=== PATIENT | male | born 1950 | race Caucasian/White ===

== ENCOUNTER 2021-07-24 12:30 | Outpatient (RCR) | payer MEDICARE, OTHER, SELFPAY | END 2021-07-24 14:30 | LOC: CAR 12:30 | PROVIDERS: Referring Provider Family Medicine; Visit Provider Family Medicine | DX: I21.3 ST elevation (STEMI) myocardial infarction of unspecified site (principal) | CPT/HCPCS: 93798 ==

== ENCOUNTER → 2021-07-25 07:52 | Outpatient (CLI) | payer MEDICARE, OTHER, SELFPAY ==
[2021-07-25 08:24] LABS: Add Manual Diff / Slide Review NO; Basophils Absolute Auto 0 /uL (0-100); Basophils Percent Auto 0.3 % (0-2); Eosinophils Absolute Auto 100 /uL (0-450); Eosinophils Percent Auto 2.1 % (2-4); Hematocrit 39.1 % (41-53); Hemoglobin 13.2 g/dL (13.5-17.5); Lymphocytes Absolute Auto 1400 /uL (1100-4500); Mean Corpuscular HGB Conc 33.9 % (30-36); Mean Corpuscular Volume 94.4 fL (80-100); Monocytes Absolute Auto 300 /uL (0-900); Monocytes Percent Auto 6.5 % (3-14); Neutrophils Absolute Auto 2300 /uL (1500-7000); Neutrophils Percent Auto 57.1 % (50-75); Platelet Count 198 X10^3/uL (150-400); Red Blood Cell Count 4.14 X10^6/uL (4.5-5.9)
[2021-07-25 09:27] LABS: Blood Urea Nitrogen 15 mg/dL (9-20); Calcium 9.6 mg/dL (8.4-10.2); Carbon Dioxide 30 mmol/L (22-32); Chloride 105 mmol/L (98-107); Estimated Glomerular Filt Rate > 60 mL/min (>60); Glucose 101 mg/dL (80-110); HEMOLYSIS < 15 (0-50); Sodium 141 mmol/L (137-145)
[2021-07-26 16:49] LABS: Cholesterol 100 mg/dL (140-199); HDL Cholesterol 39 mg/dL (40-60); LDL Cholesterol Calculated 42 mg/dL (<100); Triglycerides 93 mg/dL (35-150)
== END ==
PROVIDERS: PCP Family Medicine; Referring Provider Internal Medicine Cardiovascular Disease; Visit Provider Internal Medicine Cardiovascular Disease
DX: I25.10 Atherosclerotic heart disease of native coronary artery without angina pectoris (principal); E78.5 Hyperlipidemia, unspecified
CPT/HCPCS: 36415; 80048; 80061; 85025

== ENCOUNTER 2021-08-16 21:39 | Inpatient (IN) | payer MEDICARE, OTHER, SELFPAY ==
[2021-08-16 22:05] VITALS: BP 134/90; PULSE 60; RESP 18; TEMP 36.6; O2SAT 100
[2021-08-16 22:32] LABS: Appearance Urine UA CLEAR; Bilirubin Urine UA NEGATIVE (NEGATIVE); Color Urine UA YELLOW; Glucose Urine UA NEGATIVE (Negative); Ketones Urine UA TRACE (NEGATIVE); Leukocyte Esterase Urine UA 1+ (NEGATIVE); Nitrite Urine UA NEGATIVE (Negative); Occult Blood Urine UA 2+ (Negative); Protein Urine UA 1+ (Negative); Urobilinogen Urine UA 0.2 E.U./dL (0.2)
--- NOTE | 2021-08-16 22:45 | ED_ITS ---
HPI - Back Pain/Injury General Chief Complaint: Back Pain/Injury Stated Complaint: EXTREME UNDERNEATH LEFT RIB Time Seen by Provider: 08/16/21 22:17 Source: patient Mode of arrival: Ambulatory Limitations: no limitations History of Present Illness HPI Narrative: Patient is a 70-year-old male. History of Parkinson's disease who is here for evaluation of pain on his left flank. He states that it was a relatively sudden onset earlier this evening. He has had a kidney stone in the past but that was many years ago. He states this feels somewhat like that. He denies any urinary symptoms. No nausea vomiting. No fevers. No change in bowel habits. Has not taken anything for the symptoms prior to arrival. No skin changes. Related Data Allergies Allergy/AdvReac Type Severity Reaction Status Date / Time Iodine Allergy Unknown Uncoded 07/22/17 11:55 Review of Systems Constitutional Comments: No fevers Cardiovascular Cardiovascular: Denies chest pain and Denies dyspnea Respiratory Respiratory: Denies dyspnea Gastrointestinal Gastrointestinal: Denies nausea and Denies vomiting Comments: Left-sided flank pain Genitourinary Genitourinary: Denies dysuria and Reports flank pain Integumentary/Breasts Skin/Breast: Denies rash Neurologic Neurologic: Reports system reviewed and no additional complaints, except as documented Hematologic/Lymphatic On Anticoagulants: No Allergic/Immunologic Allergic/Immunologic: Reports system reviewed and no additional complaints, except as documented Patient History Medical History Parkinson's disease Social History household members: spouse Smoking Status: Never smoker alcohol intake: never Smoking Status: Never smoker Substance Use Type: does not use Exam Initial Vital Signs Initial Vital Signs: Vital Signs Temperature 97.9 F 08/16/21 22:05 Pulse Rate 60 08/16/21 22:05 Respiratory Rate 18 08/16/21 22:05 Blood Pressure 134/90 08/16/21 22:05 Pulse Oximetry 100 08/16/21 22:05 Const General: cooperative and comfortable HENMT Head: normal to inspection and normocephalic Resp Effort & Inspection: normal respiratory effort Auscultation: clear to auscultation bilaterally Cardio Rate: regular rate Rhythm: regular rhythm Heart Sounds: murmur GI Inspection: normal to inspection Palpation: soft and No tender Skin General: no rashes or lesions noted Neuro Other: He does have a tremor consistent with his Parkinson's disease. Otherwise nonfocal exam. Alert oriented. Extrem General: normal to inspection Psych Appearance: grossly normal and well kempt Course Orders Ordered: ED Orders 08/16/21 22:10 Urinalysis and Microscopic Stat Urine Culture Stat 08/16/21 22:19 EKG-12 Lead Stat 08/16/21 22:44 Basic Metabolic Panel Stat Complete Blood Count AUTO DIFF Stat 08/16/21 22:46 CT kidney ureter bladder (KUB) Stat 08/17/21 01:03 Consult to Urology Stat 08/17/21 01:10 COVID19 -Nasal RAPID/Pre-Proc Stat Sodium Chloride (Normal Saline 0.9%) 1,000 mls @ 100 mls/hr IV CONT KENRICK Last Infusion: 08/17/21 03:01 Dose: 100 mls/hr Documented by: Admin: 08/17/21 01:21 Dose: 100 mls/hr Documented by: SHARON Morphine Sulfate (Morphine 2 Mg/Ml Inj) 4 mg IV Q2HR PRN PRN Reason: Pain, Severe (7-10) Last Admin: 08/17/21 03:25 Dose: 4 mg Documented by: JB Ondansetron HCl (Ondansetron 4 Mg/2 Ml Inj) 4 mg IV Q4HR PRN PRN Reason: Nausea And Vomiting Discontinued Medications Ceftriaxone Sodium 1,000 mg/ (Sodium Chloride) 100 mls @ 200 mls/hr IV NOW ONE Stop: 08/17/21 01:05 Last Infusion: 08/17/21 03:01 Dose: 0 mls/hr Documented by: Admin: 08/17/21 01:20 Dose: 200 mls/hr Documented by: SHARON Ketorolac Tromethamine (Ketorolac 30 Mg/Ml Vial) 30 mg IV NOW ONE Stop: 08/16/21 22:47 Last Admin: 08/16/21 22:55 Dose: 30 mg Documented by: SHARON Morphine Sulfate (Morphine 4 Mg/Ml Inj) 4 mg IV NOW ONE Stop: 08/17/21 00:57 Last Admin: 08/17/21 01:04 Dose: 4 mg Documented by: TONNY Morphine Sulfate (Morphine 2 Mg/Ml Inj) 4 mg IV Q2HR [facility] Vital Signs Vital signs: Vital Signs - 8 hr 08/16/21 22:05 Temperature 97.9 F Pulse Rate 60 Respiratory Rate 18 Blood Pressure 134/90 Pulse Oximetry 100 MDM - Back Pain/Injury Lab Data Attestation: I reviewed the patient's lab results. Result diagrams: 08/16/21 22:44 08/16/21 22:44 Labs: Lab Results 08/16/21 08/16/21 08/16/21 Range/Units 22:10 22:44 22:44 WBC 7.3 (4.5-11.0) X10^3/uL RBC 3.94 L (4.5-5.9) X10^6/uL Hgb 12.7 L (13.5-17.5) g/dL Hct 37.0 L (41-53) % MCV 93.9 (80-100) fL MCH 32.3 (26-34) PG MCHC 34.4 (30-36) % RDW 13.3 (11.6-14.8) % Plt Count 173 (150-400) X10^3/uL Neut % (Auto) 74.3 (50-75) % Lymph % (Auto) 16.7 L (25-40) % [place] % (Auto) 7.3 (3-14) % Eos % (Auto) 1.3 L (2-4) % Baso % (Auto) 0.4 (0-2) % Neut # (Auto) 5400 (6359-8003) /uL Lymph # (Auto) 1200 (6348-1910) /uL [place] # (Auto) 500 (0-900) /uL Eos # (Auto) 100 (0-450) /uL Baso # (Auto) 0 (0-100) /uL Sodium 140 (137-145) mmol/L Potassium 4.2 (3.4-5.1) mmol/L Chloride 106 (98-107) mmol/L Carbon Dioxide 25 (22-32) mmol/L BUN 26 H (9-20) mg/dL Creatinine 1.41 H (0.66-1.25) mg/dL Estimated GFR 54 L (>60) mL/min BUN/Creatinine Ratio 18.4 (6-22) Glucose 97 (80-110) mg/dL Calcium 9.9 (8.4-10.2) mg/dL Urine Color Yellow Urine Appearance Clear Urine pH 6.0 (4.5-8.0) Ur Specific [place] 1.020 (1.000-1.035) Urine Protein 1+ H (Negative) Urine Glucose (UA) Negative (Negative) g/dL Urine Ketones Trace H (NEGATIVE) Urine Occult Blood 2+ H (Negative) Urine Nitrate Negative (Negative) Urine Bilirubin Negative (NEGATIVE) Urine Urobilinogen 0.2 (0.2) E.U./dL Ur Leukocyte Esterase 1+ H (NEGATIVE) Urine RBC 5-10/hpf H (0-5/HPF) Urine WBC 10-30/hpf H (0-5/HPF) Urine Bacteria Occasional (0-1) (None) Urine Mucus 1+ H (Negative) Ur Culture Indicated? Specimen cultured SARS-CoV-2 (PCR) (Negative) 08/17/21 Range/Units 01:10 WBC (4.5-11.0) X10^3/uL RBC (4.5-5.9) X10^6/uL Hgb (13.5-17.5) g/dL Hct (41-53) % MCV (80-100) fL MCH (26-34) PG MCHC (30-36) % RDW (11.6-14.8) % Plt Count (150-400) X10^3/uL Neut % (Auto) (50-75) % Lymph % (Auto) (25-40) % [place] % (Auto) (3-14) % Eos % (Auto) (2-4) % Baso % (Auto) (0-2) % Neut # (Auto) (7072-9584) /uL Lymph # (Auto) (9154-9987) /uL [place] # (Auto) (0-900) /uL Eos # (Auto) (0-450) /uL Baso # (Auto) (0-100) /uL Sodium (137-145) mmol/L Potassium (3.4-5.1) mmol/L Chloride (98-107) mmol/L Carbon Dioxide (22-32) mmol/L BUN (9-20) mg/dL Creatinine (0.66-1.25) mg/dL Estimated GFR (>60) mL/min BUN/Creatinine Ratio (6-22) Glucose (80-110) mg/dL Calcium (8.4-10.2) mg/dL Urine Color Urine Appearance Urine pH (4.5-8.0) Ur Specific [place] (1.000-1.035) Urine Protein (Negative) Urine Glucose (UA) (Negative) g/dL Urine Ketones (NEGATIVE) Urine Occult Blood (Negative) Urine Nitrate (Negative) Urine Bilirubin (NEGATIVE) Urine Urobilinogen (0.2) E.U./dL Ur Leukocyte Esterase (NEGATIVE) Urine RBC (0-5/HPF) Urine WBC (0-5/HPF) Urine Bacteria (None) Urine Mucus (Negative) Ur Culture Indicated? SARS-CoV-2 (PCR) Negative (Negative) Imaging Data CT scan - abdomen/pelvis: Radiologist's Impression: [address] [address] [address] Scan Report Addendum Patient: Maykel Klein MR#: [id number] : 1950 Acct:[id number] Age/Sex: 70 / M Date of Service: 08/16/21 Loc: ED Accession Number: [id number] ?? Procedure: CT kidney ureter bladder (KUB) Ordering Provider: Nathan Hamlin D.O. ADDENDUMThis report includes an Addendum and supersedes previous reports for this exam. ? ? ? PROCEDURE:? CT KIDNEY URETER BLADDER (KUB) ? INDICATIONS:? Left flank pain eval for stone ? TECHNIQUE:? Axial sections were acquired from the lung bases to the pubic symphysis.? Coronal and sagittal reformats were performed.? For radiation dose reduction, the following was used: ?automated exposure control, adjustment of mA and/or kV according to patient size.? ? COMPARISON:? None. ? FINDINGS:? Image quality:? Excellent.? ? Lung bases:? There is mild dependent atelectasis bilaterally.? ? Heart:? Heart is normal in size.? There is a small to moderate hiatal hernia. ? URINARY: Right Kidney:? There are multiple, at least 7, nonobstructing stones within the right kidney, with the largest measuring up to 1.4 cm.? This demonstrates attenuation values of approximately 900 to a 1000 Hounsfield units.? Right Ureter:? There is hydroureter proximally with an obstructing stone in the mid left ureter measuring up to 0.7 cm. ? Left Kidney: ? There is at least 1 nonobstructing stone within the left kidney. Left Ureter:? There is a small nonobstructing stone within the mid left ureter measuring up to 0.3 cm with mild left hydronephrosis and perinephric stranding. ? Bladder:? Normal wall thickness. No stones. ? ? ? ABDOMEN: Liver:? No mass lesion.? Gallbladder:? Surgically absent. Biliary ducts:? No biliary ductal dilatation.? ? Pancreas:? Unremarkable.? ? Spleen:? Normal in size.? ? Adrenal Glands:? No adrenal nodules.? ? .? ? ? Stomach and Bowel:? Stomach, small bowel loops, and colon are normal in caliber and wall thickness.? No evidence of appendicitis.? Peritoneum:? No abnormal intraperitoneal fluid.? No free air.? ? Ventral Wall: ? No hernia.? Abdominal Nodes:? No retroperitoneal or mesenteric adenopathy by size criteria.? Vessels:? Aorta and inferior vena cava are normal in size.? ? PELVIS: Pelvic Organs:? There is heterogeneous enlargement of the prostate.? There is moderate enlargement of the prostate.? Bladder:? Unremarkable.? ? Pelvic Nodes: No enlarged lymph nodes.? Miscellaneous:? There is a small right inguinal hernia containing a small amount of loculated fluid. ? Bones:? Visualized osseous structures demonstrate no suspicious focal lesions. IMPRESSION:? ? 1. Mid right ureteral stone measuring 7 mm with moderate right hydronephrosis. ? 2. Mid left ureteral stone measuring 3 mm with mild left hydronephrosis. ? 3. Additional bilateral nonobstructing renal stones as described. ? 4. Small to moderate hiatal hernia.? ? 5. Small right inguinal hernia containing a small amount of loculated fluid. ? ? Dictated by: Jimmie Lopez M.D. on 08/17/2021 at 0:14 ? ? Approved by: Jimmie Lopez M.D. on 08/17/2021 at 0:26 ? ? ? ADDENDUM: ? Correction of typographic errors in impression. ? Dictated by: Jimmie Lopez M.D. on 08/17/2021 at 0:41 ? ? Approved by: Jimmie Lopez M.D. on 08/17/2021 at 0:45 ? Addendum Dictated By: Jimmie Lopez MD Addendum Signed By: Addendum Cosigned By: DD/ /01/48 TD/TT: 08/17/2111/01/48 PROCEDURE:? CT KIDNEY URETER BLADDER (KUB) ? INDICATIONS:? Left flank pain eval for stone ? TECHNIQUE:? Axial sections were acquired from the lung bases to the pubic symphysis.? Coronal and sagittal reformats were performed.? For radiation dose reduction, the following was used: ?automated exposure control, adjustment of mA and/or kV according to patient size.? ? COMPARISON:? None. ? FINDINGS:? Image quality:? Excellent.? ? Lung bases:? There is mild dependent atelectasis bilaterally.? ? Heart:? Heart is normal in size.? There is a small to moderate hiatal hernia. ? URINARY: Right Kidney:? There are multiple, at least 7, nonobstructing stones within the right kidney, with the largest measuring up to 1.4 cm.? This demonstrates attenuation values of approximately 900 to a 1000 Hounsfield units.? Right Ureter:? There is hydroureter proximally with an obstructing stone in the mid left ureter measuring up to 0.7 cm. ? Left Kidney: ? There is at least 1 nonobstructing stone within the left kidney. Left Ureter:? There is a small nonobstructing stone within the mid left ureter measuring up to 0.3 cm with mild left hydronephrosis and perinephric stranding. ? Bladder:? Normal wall thickness. No stones. ? ? ? ABDOMEN: Liver:? No mass lesion.? There is mild of Gallbladder:? Within normal limits without calcified gallstones.? ? Biliary ducts:? No biliary ductal dilatation.? ? Pancreas:? Unremarkable.? ? Spleen:? Normal in size.? ? Adrenal Glands:? No adrenal nodules.? ? Kidneys and Ureters:? No hydronephrosis.? ? ? Stomach and Bowel:? Stomach, small bowel loops, and colon are normal in caliber and wall thickness.? No evidence of appendicitis.? Peritoneum:? No abnormal intraperitoneal fluid.? No free air.? ? Ventral Wall: ? No hernia.? There is a loculated fluid collection in the pelvis.? Abdominal Nodes:? No retroperitoneal or mesenteric adenopathy by size criteria.? Vessels:? Aorta and inferior vena cava are normal in size.? ? PELVIS: Pelvic Organs:? There is heterogeneous enlargement of the prostate.? There is moderate enlargement of the prostate.? Bladder:? Unremarkable.? ? Pelvic Nodes: No enlarged lymph nodes.? Miscellaneous: No inguinal hernias are seen. ? ? ? Bones:? Visualized osseous structures demonstrate no suspicious focal lesions. IMPRESSION:? ? 1. Obstructing stone within the mid right ureter with moderate right hydronephrosis. ? 2. Small nonobstructing stone measuring up to 0.3 cm in the mid left kidney. ? 3. There is an obstructing stone within the right retroperitoneum measuring up to 0.8 cm and a small left renal stone measuring up to 0.3 cm. ? 4. Small hiatal hernia. ? ? Dictated by: Jimmie Lopez M.D. on 08/17/2021 at 0:14 ? ? Approved by: Jimmie Lopez M.D. on 08/17/2021 at 0:26?? ECG Data Attestation: I personally reviewed and interpreted this ECG as follows: Interpretation: Sinus rhythm Ventricular rate is 64 Normal axis Normal QRS No ST T wave changes MDM Narrative Medical decision making narrative: No leukocytosis but does have a elevation in his creatinine and decrease in his GFR compared with labs were done approximately 1 month ago. He is afebrile. He did feel better after the Toradol but the pain started to return. Urinalysis has blood and white blood cells and bacteria concerning for infection. CT scan did have some discrepancies regarding laterality of stones. I did discuss the case with the radiologist who stated over the phone that he does have bilateral obstructing stones. He stated the patient had a 3 mm left-sided mid ureteral stone with hydro on the left and stranding. He also had a 7 mm right-sided mid ureteral stone with hydro as well. Given the findings of the CT scan in his labs did discuss the case with Dr. Gan on-call for Urology who stated that the patient should be admitted for further evaluation and treatment. I then discussed the case with Dr. Beach who is on-call for the patient's primary provider who will admit for further evaluation treatment. I did discuss the findings with the patient and his at bedside. They expressed understanding and agreement with the admission. Discharge Plan Departure Patient Disposition: Admitted as Observation Clinical Impression: Bilateral ureteral calculi, Urinary tract infection Admit Date/Time: 08/17/21 01:13 Admit Provider: Christina Beach
--- NOTE | 2021-08-16 22:46 | DI.CT.S_ITS ---
PROCEDURE: CT KIDNEY URETER BLADDER (KUB) INDICATIONS: Left flank pain eval for stone TECHNIQUE: Axial sections were acquired from the lung bases to the pubic symphysis. Coronal and sagittal reformats were performed. For radiation dose reduction, the following was used: automated exposure control, adjustment of mA and/or kV according to patient size. COMPARISON: None. FINDINGS: Image quality: Excellent. Lung bases: There is mild dependent atelectasis bilaterally. Heart: Heart is normal in size. There is a small to moderate hiatal hernia. URINARY: Right Kidney: There are multiple, at least 7, nonobstructing stones within the right kidney, with the largest measuring up to 1.4 cm. This demonstrates attenuation values of approximately 900 to a 1000 Hounsfield units. Right Ureter: There is hydroureter proximally with an obstructing stone in the mid left ureter measuring up to 0.7 cm. Left Kidney: There is at least 1 nonobstructing stone within the left kidney. Left Ureter: There is a small nonobstructing stone within the mid left ureter measuring up to 0.3 cm with mild left hydronephrosis and perinephric stranding. Bladder: Normal wall thickness. No stones. ABDOMEN: Liver: No mass lesion. There is mild of Gallbladder: Within normal limits without calcified gallstones. Biliary ducts: No biliary ductal dilatation. Pancreas: Unremarkable. Spleen: Normal in size. Adrenal Glands: No adrenal nodules. Kidneys and Ureters: No hydronephrosis. Stomach and Bowel: Stomach, small bowel loops, and colon are normal in caliber and wall thickness. No evidence of appendicitis. Peritoneum: No abnormal intraperitoneal fluid. No free air. Ventral Wall: No hernia. There is a loculated fluid collection in the pelvis. Abdominal Nodes: No retroperitoneal or mesenteric adenopathy by size criteria. Vessels: Aorta and inferior vena cava are normal in size. PELVIS: Pelvic Organs: There is heterogeneous enlargement of the prostate. There is moderate enlargement of the prostate. Bladder: Unremarkable. Pelvic Nodes: No enlarged lymph nodes. Miscellaneous: No inguinal hernias are seen. Bones: Visualized osseous structures demonstrate no suspicious focal lesions. IMPRESSION: 1. Obstructing stone within the mid right ureter with moderate right hydronephrosis. 2. Small nonobstructing stone measuring up to 0.3 cm in the mid left kidney. 3. There is an obstructing stone within the right retroperitoneum measuring up to 0.8 cm and a small left renal stone measuring up to 0.3 cm. 4. Small hiatal hernia. Dictated by: Jimmie Lopez M.D. on 08/17/2021 at 0:14 Approved by: Jimmie Lopez M.D. on 08/17/2021 at 0:26
[2021-08-16] MEDS: KETOROLAC 30 MG/ML VIAL IV (22:55)
[2021-08-16 22:58] LABS: Add Manual Diff / Slide Review NO; Basophils Absolute Auto 0 /uL (0-100); Basophils Percent Auto 0.4 % (0-2); Eosinophils Absolute Auto 100 /uL (0-450); Eosinophils Percent Auto 1.3 % (2-4); Hemoglobin 12.7 g/dL (13.5-17.5); Lymphocytes Absolute Auto 1200 /uL (1100-4500); Lymphocytes Percent Auto 16.7 % (25-40); Mean Corpuscular HGB Conc 34.4 % (30-36); Mean Corpuscular Hemoglobin 32.3 PG (26-34); Mean Corpuscular Volume 93.9 fL (80-100); Monocytes Absolute Auto 500 /uL (0-900); Monocytes Percent Auto 7.3 % (3-14); Neutrophils Absolute Auto 5400 /uL (1500-7000); Neutrophils Percent Auto 74.3 % (50-75); Platelet Count 173 X10^3/uL (150-400); Red Blood Cell Count 3.94 X10^6/uL (4.5-5.9); Red Cell Distribution Width 13.3 % (11.6-14.8); White Blood Cell Count 7.3 X10^3/uL (4.5-11.0)
[2021-08-16 23:03] LABS: BUN Creatinine Ratio 18.4 (6-22); Blood Urea Nitrogen 26 mg/dL (9-20); Calcium 9.9 mg/dL (8.4-10.2); Carbon Dioxide 25 mmol/L (22-32); Chloride 106 mmol/L (98-107); Estimated Glomerular Filt Rate 54 mL/min (>60); Glucose 97 mg/dL (80-110); HEMOLYSIS < 15 (0-50); Potassium 4.2 mmol/L (3.4-5.1); Sodium 140 mmol/L (137-145)
[2021-08-17] VITALS (11 sets, daily range): BP systolic 123–166; BP diastolic 49–77; PULSE 51–73; RESP 11–18; TEMP 35.6–36.5; O2SAT 96–99; BMI 25.7
--- NOTE | 2021-08-17 | DI.RAD.S_ITS ---
PROCEDURE: XR ABDOMEN 1V INDICATIONS: BILATERAL STENT PLACEMENT TECHNIQUE: One view of the abdomen acquired. COMPARISON: [facility], CT, CT KIDNEY URETER BLADDER (KUB), 08/16/2021, 22:54. FINDINGS: 3 intraoperative fluoroscopy images demonstrate bilateral ureteral stent placement. There is moderate right hydronephrosis. IMPRESSION: 1. Moderate right hydronephrosis. 2. Bilateral ureteral stent placement. Dictated by: Sam Carlos M.D. on 08/17/2021 at 14:28 Approved by: Sam Carlos M.D. on 08/17/2021 at 14:29
[2021-08-17 00:22] LABS: Bacteria Urine Occasional (0-1); Culture Indicated Urine Specimen Cultured; Mucus Urine 1+ (Negative); RBC Urine 5-10/HPF (0-5/HPF); WBC Urine 10-30/HPF (0-5/HPF)
[2021-08-17] MEDS: MORPHINE 4 MG/ML INJ IV (01:04)
[2021-08-17] MEDS: cefTRIAXone 1,000 MG in SODIUM CHLORIDE 0.9% 100 ML 200 ML IV (01:20)
[2021-08-17] MEDS: SODIUM CHLORIDE 0.9% 1,000 ML 100 ML IV (01:21)
[2021-08-17 01:31] LABS: COVID19 -Nasal RAPID Negative (Negative)
[2021-08-17] MEDS: MORPHINE 2 MG/ML INJ 4 MG IV (03:25)
--- NOTE | 2021-08-17 04:55 | PC.NURSE ---
Addendum entered by Radha Menendez R.N. 08/17/21 07:49: 0630- Called Dr. Gan regaurding patients parkinsons meds and if he was ok with patient taking then prior to surgery. Dr. Gan asked me to call medical docotr for that answer. Dr. beach called then. Dr. beach oked parkinsons medications, advised to notify anestesia that patient took medications. Dr. Beach ok'ed patient taking home parkinsons medications due to Non-Formulary specialty doses. Patient took Rytary 195, Rytary 95, Ropinerrole 8mg, Nourianz 20mg, Xadago 100mg, and Gocovri 137mg. to bring in medications with bottles for pharm to verify. Original Note: Admit/NOC Shift Note- Patient arrived to room via stretcher from ER at 0205. Patient alert and oriented and able to make needs known to staff. Patient pleasent calm and cooperative. Patient able to stand and pivot with assist to transfer from stretcher to bed. Patient with history of parkinsons with tremors. Admit questiobs done, physical assessment done, and skin check completed. patient declines need for pain medications at this time. Oriented patient to bed and bed controls, room, lights, phone, medu, anmd call sb /tv remote. safety measures in place. Patient agrees to call for assistance. bed alarm activated. Call dunn and phone within reach. Will continue to monitor.
--- NOTE | 2021-08-17 08:16 | P.CONS_ITS ---
History of Present Illness Consult details Date Patient Seen: 08/17/21 Time Patient Seen: 08:16 Chief complaint: EXTREME UNDERNEATH LEFT RIB Reason for consult: Bilateral obstructing ureteral calculi Requesting provider: Nathan Hamlin Narrative: The patient is a 70-year-old male who was experience is usual health until the early evening hours of 08/16/2021 when he had the acute onset of left flank pain. His impression was that it was reminiscent of a stone he had had many years ago. By history the stone required intervention. Does not have recollection of ever having had a metabolic stone risk evaluation. He resented to the [facility] ED for evaluation. CT KUB demonstrates bilateral nonobstructing renal calculi. There is at least 1 nonobstructing calculus the left kidney measuring up to 3 mm and also an obstructing 3 mm left mid ureteral calculus. There are at least 7 nonobstructing calculi within the right kidney, largest measuring up to 1.4 cm. Hounsfield unit measurement is reported at 900- 1000. Additionally on the left there is an obstructing 7 mm right mid ureteral calculus with a smaller, approximately 3 mm calculus just proximal to that stone. General appearance of the prostate is consistent with prostatomegaly. One of the patient's prescription medications at presentation is tamsulosin 0.8 mg. Baseline renal function 07/25/2021 indicated a creatinine of 0.88, and estimated GFR > 60. On presentation 08/16/2021 creatinine had risen sharply to 1.41, and estimated GFR had declined to 54. Urinalysis demonstrates 2+ blood 1+ leukocyte esterase. Occasional bacteria was seen. The specimen is submitted for reflex culture which is pending. White blood cell count on presentation was 7.3. Meds Home Medications and Allergies Home Medications Medication Instructions Recorded Confirmed Type amantadine HCl 137 mg 137 mg PO 0700,2200 08/17/21 08/17/21 History capsule,extended release 24 hr (Gocovri) apomorphine 25 mg sublingual film 25 mg SUBLINGUAL PRN 08/17/21 History (Kynmobi) aspirin 81 mg chewable tablet 81 mg PO DAILY 08/17/21 08/17/21 History atorvastatin 80 mg tablet 80 mg PO BEDTIME 08/17/21 08/17/21 History carbidopa 25 mg-levodopa 100 mg 25 - 100 tab PO 0100,0400 05/07/22 05/07/22 History tablet carbidopa ER 23.75 mg-levodopa 95 23.75 - 95 cap PO BID 08/17/21 08/17/21 History mg capsule,extended release (Rytary) carbidopa ER 48.75 mg-levodopa 195 cap PO 5XD 08/17/21 History mg capsule,extended release (Rytary) clopidogrel 75 mg tablet 75 mg PO DAILY 08/17/21 08/17/21 History istradefylline 20 mg tablet 20 mg 0700 08/17/21 08/17/21 History (Nourianz) levothyroxine 50 mcg tablet 50 mcg PO 0600 08/17/21 08/17/21 History ropinirole 4 mg tablet 4 mg PO 1300,1600 08/17/21 08/17/21 History ropinirole 4 mg tablet 8 mg PO 0700,1000 08/17/21 08/17/21 History safinamide 100 mg tablet (Xadago) 100 mg PO 0700 08/17/21 08/17/21 History tamsulosin 0.4 mg capsule 0.8 mg PO 1600 08/17/21 08/17/21 History zolpidem 5 mg tablet 5 mg PO BEDTIME 08/17/21 08/17/21 History Allergies Allergy/AdvReac Type Severity Reaction Status Date / Time Iodine Allergy Unknown Uncoded 07/22/17 11:55 Review of Systems Review of Systems ROS: Yes All systems reviewed with the patient and are negative except as otherwise documented Exam Vital Signs (past 8 hours): - 08/17/21 02:29 08/17/21 06:00 Temperature 97.7 F 97.0 F L Pulse Rate 73 58 L Respiratory Rate 16 16 Blood Pressure 138/50 L 146/74 H Pulse Oximetry 96 98 Oxygen Delivery Method Room Air Oxygen Flow Rate 0 Objective Labs Result Diagrams: 08/16/21 22:44 08/16/21 22:44 Labs: Laboratory Results - last 24 hr 08/16/21 08/16/21 08/16/21 22:10 22:44 22:44 WBC 7.3 RBC 3.94 L Hgb 12.7 L Hct 37.0 L MCV 93.9 MCH 32.3 MCHC 34.4 RDW 13.3 Plt Count 173 Neut % (Auto) 74.3 Lymph % (Auto) 16.7 L [place] % (Auto) 7.3 Eos % (Auto) 1.3 L Baso % (Auto) 0.4 Neut # (Auto) 5400 Lymph # (Auto) 1200 [place] # (Auto) 500 Eos # (Auto) 100 Baso # (Auto) 0 Sodium 140 Potassium 4.2 Chloride 106 Carbon Dioxide 25 BUN 26 H Creatinine 1.41 H Estimated GFR 54 L BUN/Creatinine Ratio 18.4 Glucose 97 Calcium 9.9 Urine Color Yellow Urine Appearance Clear Urine pH 6.0 Ur Specific [place] 1.020 Urine Protein 1+ H Urine Glucose (UA) Negative Urine Ketones Trace H Urine Occult Blood 2+ H Urine Nitrate Negative Urine Bilirubin Negative Urine Urobilinogen 0.2 Ur Leukocyte Esterase 1+ H Urine RBC 5-10/hpf H Urine WBC 10-30/hpf H Urine Bacteria Occasional (0-1) Urine Mucus 1+ H Ur Culture Indicated? Specimen cultured SARS-CoV-2 (PCR) 08/17/21 01:10 WBC RBC Hgb Hct MCV MCH MCHC RDW Plt Count Neut % (Auto) Lymph % (Auto) [place] % (Auto) Eos % (Auto) Baso % (Auto) Neut # (Auto) Lymph # (Auto) [place] # (Auto) Eos # (Auto) Baso # (Auto) Sodium Potassium Chloride Carbon Dioxide BUN Creatinine Estimated GFR BUN/Creatinine Ratio Glucose Calcium Urine Color Urine Appearance Urine pH Ur Specific [place] Urine Protein Urine Glucose (UA) Urine Ketones Urine Occult Blood Urine Nitrate Urine Bilirubin Urine Urobilinogen Ur Leukocyte Esterase Urine RBC Urine WBC Urine Bacteria Urine Mucus Ur Culture Indicated? SARS-CoV-2 (PCR) Negative [facility] Medical History Parkinson's disease Social History household members: spouse Tobacco & Substance Use Smoking Status: Never smoker alcohol intake: never Assessment & Plan Assessment & Plan narrative: Assessment: 1. Bilateral obstructing mid ureteral calculi. 2. Bilateral nonobstructing renal calculi. 3. Acute kidney injury. 4. Chronic anticoagulation (clopidogrel). Plan: 1. Discussion, informed consent obtained for CYSTOSCOPY/PLACEMENT BILATERAL URE TERAL STENTS. 2. Patient will require interruption of chronic anticoagulation therapy in near future for definitive treatment the obstructing calculi the laser lithotripsy. Time Spent With Patient Critical Care time: I spent a total of [] minutes of critical care time on this patient's care today; this time is exclusive of procedural time.
--- NOTE | 2021-08-17 09:18 | PM.PREOP ---
Pre-operative Note COVID-19 Criteria for continued procedure: Expected advancement of disease process, Possibility delay results in more complex future surgery or treatment, Increased loss of function, Continuing or worsening of significant or severe pain, Deterioration of the patient's condition or overall health and Non-surgical alternatives not available or appropriate per current SOC Interval Note History & Physical reviewed/Exam performed by Physician: Yes Changes to H&P: No
--- NOTE | 2021-08-17 11:44 | CM.IDA ---
DCP: Case received, EMR reviewed and met with patient. Spouse, Jackelyn, was also at bedside. Introduced self and role. Was able to obtain information regarding patient's baseline status at home prior to hospitalization. DCP assessment completed with information currently available. Patient is a 70 year old male who admitted early this morning to the care of the hospitalist team. PCP: Dr. Robledo. Payer: confirmed: Medicare/[facility]. Patient came to the hospital via private vehicle secondary to having flank back pain. According to notes, patient had indicated, it was reminiscent of a stone that he had many years ago. Patient does hold diagnosis of obstructing calculi. He has been seen by urologist, Dr. Paz, and is scheduled for a cystoscopy/bilateral uretal stents. Patient has history of Parkinsons as well. Met with patient and spouse in his room. He was laying in bed, alert and oriented, his walker next to his bed. Spouse stated that they moved here from [facility] in January, and patient had their home built here in [place] with plans for handicapped capability, since he has Parkinsons. At patient's baseline, he drives short distances, and has his four wheel walker, does not use all of the time. There are no steps in the home. P: DCP to continue to check in for any needs. Patient is scheduled for surgical procedure today. Kait Ramey RN/Production Helper Discharge Planning/Care Management CM Discharge Assessment Start: 08/17/21 11:41 Freq: Status: Active Protocol: Document 08/17/21 11:41 (Rec: 08/17/21 11:43 [id number]) Discharge Planning Assessment Assigned Cryptologic Technician Operator/Analyst Kait Ramey RN/Production Helper Advance Directives? No Advance Directives on File No History Provided By Patient,Medical Record Prior Living Arrangements House Household Members spouse Type of transporation used prior to Drives own vehicle admit Comment Drives only locally, short distances Independent with ADL's Yes Is patient alert and oriented? Yes Needs Assistance With Home Chores / Shopping Caregiver for Another No DME Already Rented / Owned FWW / Walker Comment Uses a four wheel walker Barriers to Discharge No Comment Patient has supportive spouse . Discharge Plan Home Transportation Arrangement Spouse Referrals Initiated None needed Whiteboard Updated in Patient Room with Yes name and ext. # of Cryptologic Technician Operator/Analyst Review Status In Process Next Review Type Continued Stay Review
[2021-08-17] MEDS: LACTATED RINGERS 1,000 ML 42 ML IV (12:29)
[2021-08-17] MEDS: CEFAZOLIN 2 GM/20 ML SYRINGE IV (12:45)
--- NOTE | 2021-08-17 13:01 | SUR.OPER ---
Lithotomy on padded OR bed, head on pillow, arms secured on padded arm boards at <90 degrees abduction. Legs secured in padded yellow fins stirrups.
[2021-08-17] MEDS: IOPAMIDOL 50 ML VIAL INJ (13:10)
--- NOTE | 2021-08-17 13:51 | P.OP_ITS ---
Operative Date/Time/Diagnoses Date of procedure: 08/17/21 Time of procedure: 13:30 Pre-op diagnosis: 1. Bilateral obstructing ureteral calculi. 2. Bilateral nonobstructing renal calculi. 3. Acute kidney injury. Post-op diagnosis: same Procedure & Clinicians Procedure: 1. Cystoscopy/right retrograde pyelogram. 2. Cystoscopy/placement bilateral ureteral stents (6 [place] by 22-32 cm multi- length). Same procedure as scheduled: Yes Indications: 1. Bilateral obstructing mid ureteral calculi. 2. Bilateral nonobstructing renal calculi. 3. Acute kidney injury. Surgeon: Tahira Gan Click Yes if Unassisted: Yes Anesthesia Type: General Operative Notes Findings: 1. Urethra-normal caliber without annular stricture or lesion. 2. External sphincter- coapted with normal overlying urothelium. 3. Prostate-5+ cm length with obstructing trilobar hyperplasia and elevated median bar. 4. Bladder-1 to 2+ trabeculation. Normal ureteral orifices bilaterally. Excess difficult due to elevated median bar. 5. Obstructing right ureteral calculi were of a high-grade nature and passage of Jeff guidewire was difficult but successful. Closure Type: not applicable Specimen(s): none sent Applied: other (Bilateral 6 [place] by 22-32 cm multi-length stents.) Estimated Blood Loss (mL): 5 Blood products transfused: none Procedure in detail: The patient was positioned supine was administered general anesthesia. He was then repositioned in semi lithotomy and the lower abdomen, genitalia, and groin were then prepped and draped in sterile fashion. A 22 [place] panendoscope was then passed into the lower urinary tract with the findings as described above. Next, a 0.35 hybrid guidewire was passed through the endoscope and then into the right collecting system under direct and fluoroscopic guidance. High-grade obst ruction was met in the mid right ureter secondary to obstructing calculus. Multiple manipulations were attempted. A 5 [place]ese pollock catheter was then passed over the hybrid guidewire the hybrid guidewire is then backloaded off the [place] catheter. A 0.35 glidewire was then advanced through the [place] catheter and with persistent manipulation was finally passed proximal to the calculus and coiled into the intrarenal collecting system. [place] catheter was then advanced further proximally over the Glidewire. The Glidewire was then backloaded out of the [place] catheter. A right retrograde pyelogram was then performed demonstrating a dilated collecting system. The hybrid guidewire was then reinserted into the [place] catheter advanced proximally under direct and fluoroscopic guidance. Next, the [place] catheter was backloaded off the hybrid guidewire. Now a 6 [place]ese by 22-32 cm multi-length stent was advanced over the hybrid guidewire in position satisfactory in the right collecting system under direct and fluoroscopic guidance. No retrieval line was left attached. Next, the 0.35 glidewire was advanced through the push bar and advanced into the left ureteral orifice under direct and fluoroscopic guidance. The push bar was backloaded off the glidewire and now a 6 [place]ese by 22-32 cm multi-length stent was selected. This stent was then advanced over the Glidewire under direct and fluoroscopic guidance. No retrieval line was left attached. The bladder is then drained completely, and all instrumentation was removed. The patient was then repositioned in supine, was awakened, and was transferred to [facility] for transport to the PACU. Complications: none Post-operative Condition: stable Disposition: PACU Plan for aftercare: Admit to acute care.
--- NOTE | 2021-08-17 14:05 | SUR.PHASEI ---
Pt arrived to PACU, with oral airway, chin lift needed for full airway patency. 02 nasal cannula added, then pt awoke, airway out and 02 weaned off. Pt taking ice chips, denied pain, no nausea. Follows commands.
--- NOTE | 2021-08-17 14:14 | SUR.PHASEI ---
Pt conversing with Martínez RN, Report called, pt transported up to room.
--- NOTE | 2021-08-17 14:30 | P.HP_ITS ---
History of Present Illness History of Present Illness Date Patient Seen: 08/17/21 Time Patient Seen: 12:15 Date of Onset of Symptoms: 08/16/21 Chief complaint: EXTREME UNDERNEATH LEFT RIB Narrative: 70 y.o male with distant history of nephrolithiasis who developed sudden onset of flank pain. very severe. Went to ER fairly quickly and found to have obstructive kidney stone bilaterally. Admitted to hospital for further treatment and condition. Patient with decent pain control currently and headed to OR. Otherwise patient has been in his usual state health. Patient denies any recent chest pain or shortness of breath. No PND or orth opnea. No nausea vomiting or diarrhea. No fever. No change in diet or exercise. PMH: 1. Parkinson's disease: 12/2007; Sheree Cornell M.D. ([facility]) 2. CAD, 01/31 stent placed; [place] 3. DJD 4. Nephrolithiasis, 1999 PSH: 1. Stent, cardiac, 01/31 2. cholecystectomy 3. medial KR, TKR-R HRB: no tobacco, etoh, drugs SH: ; 2 children, retired from [email or web address] lives in [place]; previously in [place], [place] FHx: mom with parkinson's in 60's dad siblings no kidney stones Patient History Medical History Parkinson's disease Family & Social History Social History: household members spouse Prior Living Arrangements House Safety & Behavioral: Feels Safe in Current Yes Environment Been Physically Hurt or No Threatened By a Person Tobacco & Substance use: Smoking Status Never smoker alcohol intake never Substance Use Type does not use Meds Home Medications and Allergies Home Medications Medication Instructions Recorded Confirmed Type amantadine HCl 137 mg 137 mg PO 0700,2200 08/17/21 08/17/21 History capsule,extended release 24 hr (Gocovri) apomorphine 25 mg sublingual film 25 mg SUBLINGUAL PRN 08/17/21 History (Kynmobi) aspirin 81 mg chewable tablet 81 mg PO DAILY 08/17/21 08/17/21 History atorvastatin 80 mg tablet 80 mg PO BEDTIME 08/17/21 08/17/21 History carbidopa 25 mg-levodopa 100 mg 25 - 100 tab PO 0100,0400 08/17/21 08/17/21 History tablet carbidopa ER 23.75 mg-levodopa 95 23.75 - 95 cap PO BID 08/17/21 08/17/21 History mg capsule,extended release (Rytary) carbidopa ER 48.75 mg-levodopa 195 cap PO 5XD 08/17/21 History mg capsule,extended release (Rytary) clopidogrel 75 mg tablet 75 mg PO DAILY 08/17/21 08/17/21 History istradefylline 20 mg tablet 20 mg 0700 08/17/21 08/17/21 History (Nourianz) levothyroxine 50 mcg tablet 50 mcg PO 0600 08/17/21 08/17/21 History ropinirole 4 mg tablet 4 mg PO 1300,1600 08/17/21 08/17/21 History ropinirole 4 mg tablet 8 mg PO 0700,1000 08/17/21 08/17/21 History safinamide 100 mg tablet (Xadago) 100 mg PO 0700 08/17/21 08/17/21 History tamsulosin 0.4 mg capsule 0.8 mg PO 1600 08/17/21 08/17/21 History zolpidem 5 mg tablet 5 mg PO BEDTIME 08/17/21 08/17/21 History Allergies Allergy/AdvReac Type Severity Reaction Status Date / Time Iodine Allergy Unknown Uncoded 07/22/17 11:55 Review of Systems Review of Systems Narrative: Negative for any unintentional weight loss. Negative for any recent falls. Negative for any fever, chills, cough. Negative for any dysuria. Negative for any hematuria. Negative for any change in bowel movements. 12 point review of system is otherwise negative Exam Vital Signs (past 8 hours): - 08/17/21 07:45 08/17/21 13:45 08/17/21 13:50 Temperature 97.0 F L 97.2 F L Pulse Rate 58 L 60 57 L Respiratory Rate 18 13 13 Blood Pressure 140/68 123/59 L 135/64 Pulse Oximetry 99 98 98 08/17/21 13:55 08/17/21 14:12 Temperature 97.5 F L Pulse Rate 56 L 57 L Respiratory Rate 11 L 14 Blood Pressure 135/65 135/71 Pulse Oximetry 98 98 Oxygen Delivery Method Room Air Oxygen Flow Rate 2 Narrative Exam Narrative: Patient is afebrile vital signs are stable Patient has masked faces due to Parkinson's. Otherwise HEENT unremarkable Neck: Supple without adenopathy or thyromegaly Chest: Clear to auscultation without wheezes rhonchi or crackles Cor: Regular rate and rhythm with distant S1-S2 Abdomen: Positive bowel sounds, soft. Patient has recently had pain medications. Patient with bilateral flank tenderness mild tenderness right upper quadrant. No guarding. No rebound Extremities: No edema, pulses intact Skin: No rashes Neurologic exam consistent with Parkinson's but no other focal abnormalities Objective Labs Result Diagrams: 08/16/21 22:44 08/16/21 22:44 Labs: Laboratory Results - last 24 hr 08/16/21 08/16/21 08/16/21 22:10 22:44 22:44 WBC 7.3 RBC 3.94 L Hgb 12.7 L Hct 37.0 L MCV 93.9 MCH 32.3 MCHC 34.4 RDW 13.3 Plt Count 173 Neut % (Auto) 74.3 Lymph % (Auto) 16.7 L [place] % (Auto) 7.3 Eos % (Auto) 1.3 L Baso % (Auto) 0.4 Neut # (Auto) 5400 Lymph # (Auto) 1200 [place] # (Auto) 500 Eos # (Auto) 100 Baso # (Auto) 0 Sodium 140 Potassium 4.2 Chloride 106 Carbon Dioxide 25 BUN 26 H Creatinine 1.41 H Estimated GFR 54 L BUN/Creatinine Ratio 18.4 Glucose 97 Calcium 9.9 Urine Color Yellow Urine Appearance Clear Urine pH 6.0 Ur Specific [place] 1.020 Urine Protein 1+ H Urine Glucose (UA) Negative Urine Ketones Trace H Urine Occult Blood 2+ H Urine Nitrate Negative Urine Bilirubin Negative Urine Urobilinogen 0.2 Ur Leukocyte Esterase 1+ H Urine RBC 5-10/hpf H Urine WBC 10-30/hpf H Urine Bacteria Occasional (0-1) Urine Mucus 1+ H Ur Culture Indicated? Specimen cultured SARS-CoV-2 (PCR) 08/17/21 01:10 WBC RBC Hgb Hct MCV MCH MCHC RDW Plt Count Neut % (Auto) Lymph % (Auto) [place] % (Auto) Eos % (Auto) Baso % (Auto) Neut # (Auto) Lymph # (Auto) [place] # (Auto) Eos # (Auto) Baso # (Auto) Sodium Potassium Chloride Carbon Dioxide BUN Creatinine Estimated GFR BUN/Creatinine Ratio Glucose Calcium Urine Color Urine Appearance Urine pH Ur Specific [place] Urine Protein Urine Glucose (UA) Urine Ketones Urine Occult Blood Urine Nitrate Urine Bilirubin Urine Urobilinogen Ur Leukocyte Esterase Urine RBC Urine WBC Urine Bacteria Urine Mucus Ur Culture Indicated? SARS-CoV-2 (PCR) Negative Assessment & Plan Assessment & Plan narrative: 60 minute spent with patient. Met with patient and his and spoke with nursing and and spoke with Dr. Gan as well. 70-year-old male with bilateral right greater than left hydronephrosis with obs tructing renal stone. Worse on the right with a 7 mm stone. Assessment 1. Nephrolithiasis with obstructing ureteral stones bilaterally Plan: Patient will be admitted to the hospital. He will be NPO. He will proceed with stent placement Routine care in this regard. Pain management. IV fluids. Assessment 2. Parkinson's disease with complicated medications. Reviewed all these medications with patient's as well as pharmacy and he will take his outpatient medications Assessment 3. Coronary artery disease without any current symptoms Plan: Will continue Plavix. Will continue atorvastatin. Will discuss as outpatient with his clinical business manager Dr. Gita Abreu about stopping Plavix briefly if we can do this for presumed lithotripsy which will most likely have to occur. Or if he will need bridging. Fortunately there was not and in order in amount of blood today Assessment 4. Home hyperlipidemia Plan: Continue atorvastatin Assessment 5. Hypothyroidism Plan: Will continue on thyroid medication Assessment 6. Disposition. Anticipate we will discharge home tomorrow Code status is full code Time Spent With Patient Critical Care time: I spent a total of [] minutes of critical care time on this patient's care today; this time is exclusive of procedural time. Quality VTE Deep Vein Thrombosis/Pulmonary Embolism Present on Admission: No
--- NOTE | 2021-08-17 14:38 | SUR.PHASEI ---
Pt left in room with and RERERN, left in stable condition.
[2021-08-17] MEDS: TAMSULOSIN 0.4 MG CAPSULE 0.8 MG PO (15:15)
[2021-08-17] MEDS: LACTATED RINGERS 1,000 ML 125 ML IV (15:15)
[2021-08-17] MEDS: ROPINIROLE 4 MG TABLET PO (15:55)
--- NOTE | 2021-08-17 16:52 | PC.NURSE ---
Pt is AxOx4, needs SBA with FWW. Pt came back from surgery around 1430. No c/o pain. VSS. Pt is eating and drinking well. No other changes.
[2021-08-17] MEDS: ACETAMINOPHEN 325 MG TABLET 650 MG PO (17:45)
[2021-08-17] MEDS: ATORVASTATIN 20 MG TABLET 80 MG PO (22:02)
[2021-08-17] MEDS: ZOLPIDEM 5 MG TABLET PO (22:02)
[2021-08-18] MEDS: LACTATED RINGERS 1,000 ML 125 ML IV (00:07)
[2021-08-18] MEDS: CARBIDOPA-LEVODOPA 25/100 TABLET 25 EACH PO (01:09)
[2021-08-18] MEDS: CARBIDOPA-LEVODOPA 25/100 TABLET 1 EACH PO (04:51)
[2021-08-18] MEDS: LEVOTHYROXINE 50 MCG TABLET PO (07:05)
[2021-08-18] MEDS: [UNRECOGNIZED DRUG - OTHER] 100 EACH PO (07:05)
[2021-08-18] MEDS: ROPINIROLE 4 MG TABLET 8 MG PO ×2 (07:06→09:29)
[2021-08-18] MEDS: ASPIRIN 81 MG CHEW TAB PO (08:24)
[2021-08-18] MEDS: LACTATED RINGERS 1,000 ML 100 ML IV (08:24)
[2021-08-18] MEDS: CLOPIDOGREL 75 MG TABLET PO (08:24)
[2021-08-18 09:00] VITALS: BP 129/46; PULSE 61; RESP 16; TEMP 36.5; O2SAT 94
[2021-08-18 09:39] VITALS: O2SAT 96
--- NOTE | 2021-08-18 10:40 | PM.DS.1 ---
History of Present Illness History of Present Illness Chief complaint: EXTREME UNDERNEATH LEFT RIB Narrative: 70 y.o male with distant history of nephrolithiasis who developed sudden onset of flank pain. very severe. Went to ER fairly quickly and found to have obstructive kidney stone bilaterally. Admitted to hospital for further treatment and condition. Patient with decent pain control currently and headed to OR. Otherwise patient has been in his usual state health. Patient denies any recent chest pain or shortness of breath. No PND or orthopnea. No nausea vomiting or diarrhea. No fever. No change in diet or exercise. PMH: 1. Parkinson's disease: 12/2007; Sheree Cornell M.D. ([facility]) 2. CAD, 01/31 stent placed; [facility] 3. DJD 4. Nephrolithiasis, 1999 PSH: 1. Stent, cardiac, 01/31 2. cholecystectomy 3. medial KR, TKR-R HRB: no tobacco, etoh, drugs SH: ; 2 children, retired from [employer] lives in [place]; previously in [place], [place] FHx: mom with parkinson's in 's dad siblings no kidney stones Discharge Providers Provider Date of admission: 08/17/21 01:13 Discharge Date: 08/18/21 Primary care physician: Axel Robledo MD Consults: 08/17/21 01:03 Consult to Urology Stat Comment: Consulting Provider: Tahira Gan Reason for consultation: Bilateral ureteral stones Has provider been notified: Yes 08/17/21 01:14 Consult to Physician Stat Comment: Consulting Provider: Axel Robledo Reason for consultation: admission Has provider been notified: No Consult to Physician Urgent Comment: Consulting Provider: Christina Beach Reason for consultation: admission Has provider been notified: Yes Discharge provider: Christina Beach MD Summary Hospital Course Discharge Diagnosis: Bilateral nephrolithiasis with ureteral obstruction and severe hydronephrosis, requiring bilateral stent placement by Dr. Gan on 08/17/2021 BPH Parkinson's Coronary artery disease Hyperlipidemia Hospital Course: Patient admitted to the hospital and then went to surgery for bilateral stent placement. He was kept overnight for pain management and to continue monitoring. He had no problems. Blood work is pending at this time but assuming that this is stable he will be discharged home on all his same outpatient medications. He was having some pain with urination on the left flank but overall is pain free. He has been afebrile vital signs stable. Will discharge home on scheduled Tylenol. Offered oxycodone to take as needed for pain but he declines. He will continue with Flomax. He will call tomorrow to schedule appointment with Dr. Gan for follow-up plan. Status at Discharge Cognitive/behavioral status at discharge: oriented and at baseline, oriented Functional status at discharge: uses cane/walker Overall status at discharge: patient is progressing back to baseline Exam Vital Signs (past 8 hours): - 08/18/21 09:00 08/18/21 09:39 Temperature 97.7 F Pulse Rate 61 Respiratory Rate 16 Blood Pressure 129/46 L Pulse Oximetry 94 96 Oxygen Delivery Method Room Air Oxygen Flow Rate 0 Narrative Exam Narrative: Afebrile vital signs are stable HEENT unremarkable Neck is supple Chest: Clear to auscultation without wheezes rhonchi or crackles Cor: Regular rate and rhythm with 2 to 3/6 systolic ejection murmur heard loudest at the left upper sternal border. Unchanged from yesterday. Abdomen: Positive bowel sounds, soft, nontender, nondistended, no hepatosplenomegaly, no flank tenderness Extremities no edema Neurologic exam nonfocal Skin no rashes Objective Labs Result Diagrams: 08/16/21 22:44 08/16/21 22:44 [facility] Medical History Parkinson's disease Social History household members: spouse Smoking Status: Never smoker alcohol intake: never Discharge Assessment & Plan Assessment and Plan Assessment: Bilateral nephrolithiasis with ureteral obstruction and severe hydronephrosis, requiring bilateral stent placement by Dr. Gan on 08/17/2021 BPH Parkinson's Coronary artery disease Hyperlipidemia Plan of Treatment: DC to home in stable condition. Patient declines oxycodone as needed for pain and will take Tylenol. Follow-up with Dr. Nava next week Follow-up with Dr. Gan tomorrow Continue same outpatient medications Discharge Plan Discharge Plan Patient Disposition: Home Discharge orders & Medications Prescriptions: Continued atorvastatin 80 mg tablet 80 mg PO BEDTIME 0RF levothyroxine 50 mcg tablet 50 mcg PO 0600 0RF zolpidem 5 mg tablet 5 mg PO BEDTIME 0RF tamsulosin 0.4 mg capsule 0.8 mg PO 1600 0RF clopidogrel 75 mg tablet 75 mg PO DAILY 0RF aspirin 81 mg tablet,chewable 81 mg PO DAILY 0RF Label Comments: Take 1 tablet by mouth once a day Rytary 48.75-195 mg capsule, extended release PO 5XD 0RF Rx Instructions: 4 tabs at 0700, 1000, 1300, 1600, 1900, and 1 tab at 2200 Rytary 23.75-95 mg capsule, extended release 23.75 - 95 cap PO BID 0RF Rx Instructions: take at 0700 and 2200 carbidopa-levodopa 25-100 mg tablet 25 - 100 tab PO 0100,0400 0RF Gocovri 137 mg capsule,extended release 24hr 137 mg PO 0700,2200 0RF Nourianz 20 mg tablet 20 mg 0700 0RF Label Comments: Take 1 tablet by mouth once a day ropinirole 4 mg tablet 8 mg PO 0700,1000 0RF ropinirole 4 mg tablet 4 mg PO 1300,1600 0RF Xadago 100 mg tablet 100 mg PO 0700 0RF Kynmobi 25 mg film 25 mg SUBLINGUAL PRN (Reason: parkinsons) 0RF Rx Instructions: up to 5xday , 2 hours apart Follow up/Referrals: Axel Robledo MD [Primary Care Provider] - Discharge Health Status Multidrug resistant organism: No MDRO Diet/Activity/Treatments Diet: Diet as Tolerated Diet comment: As tolerated Activity: As tolerated Other treatments: Call Dr. Gan tomorrow for further instructions Will need coordination with Dr. Gita Abreu regarding Plavix and need for lithotripsy. Discharge Data Primary Care Provider: Axel Robledo Quality VTE Deep Vein Thrombosis/Pulmonary Embolism Present on Admission: No
--- NOTE | 2021-08-18 11:06 | PC.NURSE ---
Pt is AxOx4, needs STA and cooperative. Pt c/o pain during urination on L kidney and MD is aware of it. Otherwise, pt is stable and VSS. Pt is voiding root beer color urine which is expected and it is getting streetcar starter color. Pt's is here and pt is ready to d/c. D/c instructions are given including fall prevention and stroke education. No other changes.
[2021-08-18 11:09] LABS: Add Manual Diff / Slide Review NO; Basophils Absolute Auto 0 /uL (0-100); Basophils Percent Auto 0.2 % (0-2); Eosinophils Absolute Auto 100 /uL (0-450); Eosinophils Percent Auto 1.3 % (2-4); Hematocrit 35.3 % (41-53); Hemoglobin 12.1 g/dL (13.5-17.5); Lymphocytes Absolute Auto 800 /uL (1100-4500); Lymphocytes Percent Auto 14.5 % (25-40); Mean Corpuscular HGB Conc 34.2 % (30-36); Mean Corpuscular Hemoglobin 32.3 PG (26-34); Mean Corpuscular Volume 94.5 fL (80-100); Monocytes Absolute Auto 300 /uL (0-900); Monocytes Percent Auto 5.2 % (3-14); Neutrophils Absolute Auto 4100 /uL (1500-7000); Neutrophils Percent Auto 78.8 % (50-75); Platelet Count 147 X10^3/uL (150-400); Red Blood Cell Count 3.74 X10^6/uL (4.5-5.9); Red Cell Distribution Width 13.3 % (11.6-14.8); White Blood Cell Count 5.2 X10^3/uL (4.5-11.0)
[2021-08-18 11:23] LABS: BUN Creatinine Ratio 22.3 (6-22); Blood Urea Nitrogen 23 mg/dL (9-20); Carbon Dioxide 31 mmol/L (22-32); Chloride 105 mmol/L (98-107); Estimated Glomerular Filt Rate > 60 mL/min (>60); Glucose 127 mg/dL (80-110); HEMOLYSIS < 15 (0-50); Potassium 4.1 mmol/L (3.4-5.1); Sodium 138 mmol/L (137-145)
== END 2021-08-18 12:00 | disposition home or self-care (01) | DRG 661 ==
LOC: ED 08-17 01:14 → AC 08-17 01:14
PROVIDERS: Specialist; Admitting Provider Family Medicine; Emergency Provider Emergency Medicine; PCP Family Medicine; Referring Provider Emergency Medicine; Visit Provider Family Medicine
PROC: 0T788DZ Dilation of Bilateral Ureters with Intraluminal Device, Via Natural or Artificial Opening Endoscopic (ICD-10-PCS; principal; 2021-08-17 09:30)
DX: N13.2 Hydronephrosis with renal and ureteral calculous obstruction (principal); N17.9 Acute kidney failure, unspecified; G20 Parkinson's disease; I25.10 Atherosclerotic heart disease of native coronary artery without angina pectoris; E78.5 Hyperlipidemia, unspecified; E03.9 Hypothyroidism, unspecified; N40.1 Benign prostatic hyperplasia with lower urinary tract symptoms; Z79.01 Long term (current) use of anticoagulants; Z20.822 Contact with and (suspected) exposure to COVID-19; Z95.5 Presence of coronary angioplasty implant and graft
CPT/HCPCS: 36415; 52332; 74018; 74176; 76000; 80048; 81001; 85025; 87086; 87635; 93005; 93010; 94760; 94762; 96365; 96375; 99222; 99284; C9803; J0690; J0696; J1885; J2270

== ENCOUNTER → 2021-08-26 09:32 | Outpatient (CLI) | payer MEDICARE, OTHER, SELFPAY ==
[2021-08-17 02:11] VITALS: BMI 25.7
--- NOTE | 2021-08-26 09:35 | DI.RAD.S_ITS ---
PROCEDURE: XR KUB INDICATIONS: Kidney stone TECHNIQUE: One view of the abdomen acquired. COMPARISON: [facility], CT, CT KIDNEY URETER BLADDER (KUB), 08/16/2021, 22:54. [facility], CR, XR ABDOMEN 1V, 08/17/2021, 13:22. FINDINGS: Surgical changes and devices: Bilateral ureterovesicular stents are present. Bowel: Bowel gas pattern is normal. Significant colonic stool is noted. Soft tissues: Previously noted calcification in the proximal right ureter is suspected to be unchanged, as areas of calcification are noted immediately inferior to the coil section. Calcifications are noted overlying the right renal shadow. Visualized solid organ contours appear normal in size. Bones: No suspicious bony lesions. IMPRESSION: Right ureteral calcification suspected to still be present as described above. Dictated by: Aissatou Mendez M.D. on 08/26/2021 at 16:16 Approved by: Aissatou Mendez M.D. on 08/26/2021 at 16:18
[2021-08-26 11:32] LABS: Prostate Specific Antigen 3.73 ng/mL (0.10-4.00)
== END ==
PROVIDERS: PCP Family Medicine; Referring Provider Specialist; Visit Provider Specialist
DX: R97.20 Elevated prostate specific antigen [PSA] (principal); N20.1 Calculus of ureter
CPT/HCPCS: 36415; 74018; 84153

== ENCOUNTER → 2021-09-03 11:40 | Outpatient (CLI) | payer MEDICARE, OTHER, SELFPAY ==
[2021-08-17 02:11] VITALS: BMI 25.7
== END ==
PROVIDERS: PCP Family Medicine; Visit Provider Specialist
DX: N20.0 Calculus of kidney (principal); R30.0 Dysuria
CPT/HCPCS: 51798; 81002; 87086; 99215

== ENCOUNTER → 2021-10-01 15:20 | Outpatient (CLI) | payer MEDICARE, OTHER, SELFPAY ==
[2021-08-17 02:11] VITALS: BMI 25.7
[2021-10-01 16:39] LABS: COVID19 -Nasal RAPID Negative (Negative)
== END ==
PROVIDERS: PCP Family Medicine; Visit Provider Specialist
DX: Z20.822 Contact with and (suspected) exposure to COVID-19 (principal)
CPT/HCPCS: 87635; C9803

== ENCOUNTER 2021-10-30 15:16 | Emergency (ER) | payer MEDICARE, OTHER, SELFPAY ==
[2021-08-17 02:11] VITALS: BMI 25.7
[2021-10-30 15:17] VITALS: BP 126/66; PULSE 67; RESP 16; TEMP 36.2; O2SAT 100; BMI 24.9
--- NOTE | 2021-10-30 15:29 | DI.RAD.S_ITS ---
PROCEDURE: XR KUB INDICATIONS: stents in bilateral kidney, increase abd pain TECHNIQUE: One view of the abdomen acquired. COMPARISON: [facility], CT, CT KIDNEY URETER BLADDER (KUB), 08/16/2021, 22:54. [facility], CR, XR KUB, 08/26/2021, 9:25. FINDINGS: Surgical changes and devices: Bilateral double-J ureteral stents. Bowel: No dilated loops of small bowel. Prominent stool in the colon. Soft tissues: Bilateral kidney stones. Largest on the right measuring 1.3 cm. No suspicious abdominal calcifications. Visualized solid organ contours appear normal in size. Bones: No suspicious bony lesions. IMPRESSION: Bilateral double-J ureteral stents. The stents project in a similar position compared to August 2021. Bilateral kidney stones. Prominent stool in the colon. If clinically indicated consider CT for further evaluation. Dictated by: Wilfred Argueta M.D. on 10/30/2021 at 16:11 Approved by: Wilfred Argueta M.D. on 10/30/2021 at 16:20
[2021-10-30 16:17] LABS: Add Manual Diff / Slide Review NO; Basophils Absolute Auto 0 /uL (0-100); Basophils Percent Auto 0.4 % (0-2); Eosinophils Absolute Auto 100 /uL (0-450); Eosinophils Percent Auto 1.9 % (2-4); Hematocrit 35.4 % (41-53); Hemoglobin 12.6 g/dL (13.5-17.5); Lymphocytes Absolute Auto 1100 /uL (1100-4500); Lymphocytes Percent Auto 23.8 % (25-40); Mean Corpuscular HGB Conc 35.5 % (30-36); Mean Corpuscular Hemoglobin 33.5 PG (26-34); Mean Corpuscular Volume 94.4 fL (80-100); Monocytes Absolute Auto 300 /uL (0-900); Monocytes Percent Auto 6.8 % (3-14); Neutrophils Absolute Auto 3100 /uL (1500-7000); Neutrophils Percent Auto 67.1 % (50-75); Platelet Count 187 X10^3/uL (150-400); Red Blood Cell Count 3.75 X10^6/uL (4.5-5.9); Red Cell Distribution Width 13.7 % (11.6-14.8); White Blood Cell Count 4.7 X10^3/uL (4.5-11.0)
[2021-10-30 16:26] LABS: INR 1.2 (0.9-1.3); Prothrombin Time 13.2 SECONDS (10.1-12.7)
[2021-10-30 16:32] LABS: Alanine Aminotransferase 7 IU/L (<50); Albumin Globulin Ratio 1.5 (1.0-2.8); Alkaline Phosphatase 111 U/L (38-126); Aspartate Aminotransferase 38 IU/L (17-59); BUN Creatinine Ratio 19.6 (6-22); Bilirubin Total 0.9 mg/dL (0.2-1.3); Blood Urea Nitrogen 19 mg/dL (9-20); Calcium 9.6 mg/dL (8.4-10.2); Carbon Dioxide 31 mmol/L (22-32); Chloride 104 mmol/L (98-107); Estimated Glomerular Filt Rate > 60 mL/min (>60); Globulin 2.7 g/dL (1.7-4.1); Glucose 115 mg/dL (80-110); HEMOLYSIS < 15 (0-50); Lipase 43 U/L (23-300); Potassium 4.1 mmol/L (3.4-5.1); Sodium 139 mmol/L (137-145); Total Protein 6.7 g/dL (6.3-8.2)
[2021-10-30 16:44] VITALS: PULSE 60; O2SAT 100
--- NOTE | 2021-10-30 16:55 | PC.NURSE ---
Pt reports intense pain in his LLQ that began around 1400 and last about 20 mins and has since now resolved. Pt reports a hx of kidney stones with 2 stents placed in August. Reports blood in urine, frequency and burning. Reports hx of UT in January with stent placement and Parkinson's. Pt denies SOB, chest pain, N&V. Pt see Dr. Alexa Meeks at for urology. Call light within reach.
[2021-10-30 17:00] VITALS: PULSE 60; RESP 18; O2SAT 100
[2021-10-30 17:02] LABS: RBC Urine 30-100/HPF (0-5/HPF); Renal Epithelial Cells Urine 0-1/HPF (0-1/HPF); Squamous Epithelial Cell Urine 0-1 /HPF (0-5/HPF); Transitional Epi Cells Urine 0-1/HPF (0-5/HPF); WBC Urine 10-30/HPF (0-5/HPF)
[2021-10-30 17:03] LABS: Bacteria Urine Few (2-10); Culture Indicated Urine Specimen Cultured
--- NOTE | 2021-10-30 17:26 | ED.MALEGU ---
HPI - Male Genitourinary General Chief complaint: Urogenital-Male Stated complaint: Lt. lower abd. pain Time Seen by Provider: 10/30/21 15:27 Source: patient Mode of arrival: Family Vehicle History of Present Illness HPI Narrative: Patient is a 70-year-old male history of coronary artery disease with stents on Plavix and bilateral nephrolithiasis. He had bilateral ureteral stents placed 08/17/2021. For multiple kidney stones the largest measuring up to 1.4 cm. He has it scheduled and planned to have stents removed November 14. Today at 2:00 p.m. he had sudden onset left lower quadrant pain it lasted for about 1 hour and went away. He thinks he actually passed a kidney stone. He denies fever chills nausea vomiting. However he was worried with the stents that something may have shifted or moved. He has now been in the ED for numerous hours and feeling back to his normal self. He says he does have some irritation with urination since the stents have been placed. Related Data Home Medications Medication Instructions Recorded Confirmed amantadine HCl 137 mg 137 mg PO 0700,2200 08/17/21 09/30/21 capsule,extended release 24 hr (Gocovri) apomorphine 25 mg sublingual film 25 mg sublingual PRN parkinsons 08/17/21 09/03/21 (Kynmobi) aspirin 81 mg chewable tablet 81 mg PO DAILY 08/17/21 09/30/21 atorvastatin 80 mg tablet 80 mg PO BEDTIME 08/17/21 09/30/21 carbidopa 25 mg-levodopa 100 mg 25 - 100 tab PO 0100,0400 08/17/21 09/30/21 tablet carbidopa ER 23.75 mg-levodopa 95 23.75 - 95 cap PO BID 08/17/21 09/30/21 mg capsule,extended release (Rytary) carbidopa ER 48.75 mg-levodopa 195 cap PO 5XD 08/17/21 09/03/21 mg capsule,extended release (Rytary) clopidogrel 75 mg tablet 75 mg PO DAILY 08/17/21 09/30/21 istradefylline 20 mg tablet 20 mg 0700 08/17/21 09/30/21 (Nourianz) levothyroxine 50 mcg tablet 50 mcg PO 0608/17/21 09/30/21 ropinirole 4 mg tablet 4 mg PO 1300,1600 08/17/21 09/30/21 ropinirole 4 mg tablet 8 mg PO 0700,1000 08/17/21 09/30/21 safinamide 100 mg tablet (Xadago) 100 mg PO 0700 08/17/21 09/30/21 tamsulosin 0.4 mg capsule 0.8 mg PO 1600 08/17/21 09/30/21 zolpidem 5 mg tablet 5 mg PO BEDTIME 08/17/21 09/30/21 alprazolam PO 09/03/21 09/03/21 Previous Rx's Medication Instructions Recorded cephalexin 500 mg capsule 500 mg PO BID 7 days #14 caps 10/30/21 Allergies Allergy/AdvReac Type Severity Reaction Status Date / Time haloperidol [From Haldol] AdvReac Unknown Verified 10/30/21 15:24 Iodine Allergy Unknown Uncoded 10/30/21 15:24 Review of Systems Review of Systems Narrative: GENERAL: Denies chills, fatigue, malaise, fever, sweats, travel HEENT: Denies sinus pain, ear pain, sore throat, difficulty swallowing, neck pain RESPIRATORY: Denies dyspnea, cough, wheezing, hemoptysis, sputum. CARDIOVASCULAR: Denies chest pain, palpitations, orthopnea, edema GASTROINTESTINAL: Denies nausea, vomiting, abdominal pain, diarrhea, constipation, melena. : See HPI MUSCULOSKELETAL: Denies weakness, joint pain, or bony pain SKIN: No rash, no erythema, no pruritus NEUROLOGIC: Denies weakness, dizziness, headache, numbness, change in speech, confusion PSYCHIATRIC: No concerning psychosocial issues. 12 point review of systems is negative except for those stated above and HPI Patient History Medical History Acute kidney injury (08/2021) Bilateral nephrolithiasis History of heart attack (02/01/21) History of kidney stones Hx of chest pain Hx of Parkinson's disease Hx of thyroid disease Parkinson's disease Surgical History History of coronary artery stent placement (2020) History of ureter stent Hx of cystoscopy (08/17/21) Hx of laparoscopy Hx of total knee replacement Family History Father Cancer Hearing impairment Grandmother Cancer Social History marital status: number of children: 2 household members: spouse Smoking Status: Never smoker alcohol intake: never caffeine: No Type(s) of exercise: walking and bicycling frequency: 1-2 times per week Smoking Status: Never smoker Substance Use Type: does not use Exam Initial Vital Signs Initial Vital Signs: Vital Signs Temperature 97.2 F L 10/30/21 15:17 Pulse Rate 67 10/30/21 15:17 Respiratory Rate 16 10/30/21 15:17 Blood Pressure 126/66 10/30/21 15:17 Pulse Oximetry 100 10/30/21 15:17 Oxygen Delivery Method 10/30/21 15:17 GENERAL: Kathi 70-year-old male and in no acute distress. HEENT: Head atraumatic,EOMI, pupils reactive, face symmetric, moist mucous membranes CARDIOVASCULAR: Regular rate and rhythm without murmurs, rubs or gallops. RESPIRATORY: Breath sounds equal bilaterally, no wheezes rales or rhonchi. ABDOMEN: Soft, nontender. Normoactive bowel sounds all 4 quadrants. No guarding or rebound. EXTREMITIES: Normal range of motion, no clubbing or edema. Neurovascularly intact NEUROLOGICAL: Alert and oriented x4 SKIN: Warm, dry, no laceration, no petechiae, no rashes or lesions. Course Orders Ordered: ED Orders 10/30/21 15:29 XR KUB Stat 10/30/21 16:04 Complete Blood Count AUTO DIFF Stat Comprehensive Metabolic Panel Stat Lipase Stat Prothrombin Time INR Stat 10/30/21 16:20 Urine Culture Stat Urine Microscopic Stat 10/30/21 17:11 EKG-12 Lead Stat Vital Signs Vital signs: Vital Signs - 8 hr 10/30/21 15:17 10/30/21 16:44 10/30/21 17:00 Temperature 97.2 F L Pulse Rate 67 60 60 Respiratory Rate 16 18 Blood Pressure 126/66 Pulse Oximetry 100 100 100 Oxygen Delivery Method Room Air 10/30/21 17:30 10/30/21 18:00 10/30/21 18:13 Temperature Pulse Rate 69 61 77 Respiratory Rate 24 24 20 Blood Pressure Pulse Oximetry 98 Oxygen Delivery Method 10/30/21 18:13 Temperature Pulse Rate Respiratory Rate Blood Pressure 158/74 H Pulse Oximetry Oxygen Delivery Method MDM - Male Genitourinary Lab Data Result diagrams: 10/30/21 16:04 10/30/21 16:04 Labs: Lab Results 10/30/21 10/30/21 10/30/21 Range/Units 16:04 16:04 16:04 WBC 4.7 (4.5-11.0) X10^3/uL RBC 3.75 L (4.5-5.9) X10^6/uL Hgb 12.6 L (13.5-17.5) g/dL Hct 35.4 L (41-53) % MCV 94.4 (80-100) fL MCH 33.5 (26-34) PG MCHC 35.5 (30-36) % RDW 13.7 (11.6-14.8) % Plt Count 187 (150-400) X10^3/uL Neut % (Auto) 67.1 (50-75) % Lymph % (Auto) 23.8 L (25-40) % Bryan % (Auto) 6.8 (3-14) % Eos % (Auto) 1.9 L (2-4) % Baso % (Auto) 0.4 (0-2) % Neut # (Auto) 3100 (7141-8554) /uL Lymph # (Auto) 1100 (7611-4273) /uL Bryan # (Auto) 300 (0-900) /uL Eos # (Auto) 100 (0-450) /uL Baso # (Auto) 0 (0-100) /uL PT 13.2 H (10.1-12.7) SECONDS INR 1.2 (0.9-1.3) Sodium 139 (137-145) mmol/L Potassium 4.1 (3.4-5.1) mmol/L Chloride 104 (98-107) mmol/L Carbon Dioxide 31 (22-32) mmol/L BUN 19 (9-20) mg/dL Creatinine 0.97 (0.66-1.25) mg/dL Estimated GFR > 60 (>60) mL/min BUN/Creatinine Ratio 19.6 (6-22) Glucose 115 H (80-110) mg/dL Calcium 9.6 (8.4-10.2) mg/dL Total Bilirubin 0.9 (0.2-1.3) mg/dL AST 38 (17-59) IU/L ALT 7 (<50) IU/L Alkaline Phosphatase 111 (38-126) U/L Total Protein 6.7 (6.3-8.2) g/dL Albumin 4.0 (3.5-5.0) g/dL Globulin 2.7 (1.7-4.1) g/dL Albumin/Globulin Ratio 1.5 (1.0-2.8) Lipase 43 (23-300) U/L Urine RBC (0-5/HPF) Urine WBC (0-5/HPF) Ur Squamous Epith Cells (0-5/HPF) Ur Transition Epith Cell (0-5/HPF) Ur Renal Epithelial Cell (0-1/HPF) Urine Bacteria (None) Ur Culture Indicated? 10/30/21 Range/Units 16:20 WBC (4.5-11.0) X10^3/uL RBC (4.5-5.9) X10^6/uL Hgb (13.5-17.5) g/dL Hct (41-53) % MCV (80-100) fL MCH (26-34) PG MCHC (30-36) % RDW (11.6-14.8) % Plt Count (150-400) X10^3/uL Neut % (Auto) (50-75) % Lymph % (Auto) (25-40) % Bryan % (Auto) (3-14) % Eos % (Auto) (2-4) % Baso % (Auto) (0-2) % Neut # (Auto) (0373-5046) /uL Lymph # (Auto) (9718-2732) /uL Bryan # (Auto) (0-900) /uL Eos # (Auto) (0-450) /uL Baso # (Auto) (0-100) /uL PT (10.1-12.7) SECONDS INR (0.9-1.3) Sodium (137-145) mmol/L Potassium (3.4-5.1) mmol/L Chloride (98-107) mmol/L Carbon Dioxide (22-32) mmol/L BUN (9-20) mg/dL Creatinine (0.66-1.25) mg/dL Estimated GFR (>60) mL/min BUN/Creatinine Ratio (6-22) Glucose (80-110) mg/dL Calcium (8.4-10.2) mg/dL Total Bilirubin (0.2-1.3) mg/dL AST (17-59) IU/L ALT (<50) IU/L Alkaline Phosphatase (38-126) U/L Total Protein (6.3-8.2) g/dL Albumin (3.5-5.0) g/dL Globulin (1.7-4.1) g/dL Albumin/Globulin Ratio (1.0-2.8) Lipase (23-300) U/L Urine RBC 30-100/hpf H (0-5/HPF) Urine WBC 10-30/hpf H (0-5/HPF) Ur Squamous Epith Cells 0-1 /hpf (0-5/HPF) Ur Transition Epith Cell 0-1/hpf (0-5/HPF) Ur Renal Epithelial Cell 0-1/hpf (0-1/HPF) Urine Bacteria Few (2-10) H (None) Ur Culture Indicated? Specimen cultured Urine Dip Bedside Urine Glucose Negative Bedside Urine Bilirubin - Negative Bedside Urine Ketone +/- 5 Urine Specific Eugene 1.020 Bedside Urine Occult Blood +++ Bedside Urine pH 6.0 Bedside Urine Protein ++ 100 Bedside Urine Urobilinogen - Negative Bedside Urine Nitrite - Negative Bedside Urine Leukocytes +/- 15 Esterase Imaging Data Abdominal x-ray: Radiologist's Impression: BRISA Chan [id number] XRay Report Signed Patient: Maykel Klein MR#: [id number] : 1950 Acct:[id number] Age/Sex: 70 / M Date of Service: 10/30/21 Loc: ED Accession Number: [id number] ?? Procedure: XR KUB Ordering Provider: Naomi Foote D.O. PROCEDURE:? XR KUB ? INDICATIONS:? stents in bilateral kidney, increase abd pain ? TECHNIQUE:? One view of the abdomen acquired.? ? COMPARISON:? [facility], CT, CT KIDNEY URETER BLADDER (KUB), 08/16/2021, 22:54.? [facility], CR, XR KUB, 08/26/2021, 9:25. ? FINDINGS:? ? Surgical changes and devices:? Bilateral double-J ureteral stents. ? Bowel:? No dilated loops of small bowel.? Prominent stool in the colon.? ? Soft tissues:? Bilateral kidney stones.? Largest on the right measuring 1.3 cm.? No suspicious abdominal calcifications.? Visualized solid organ contours appear normal in size.? ? Bones:? No suspicious bony lesions.? ? IMPRESSION:? Bilateral double-J ureteral stents.? The stents project in a similar position compared to August 2021. ? Bilateral kidney stones. ? Prominent stool in the colon. ? If clinically indicated consider CT for further evaluation.? ? ? Dictated by: Wilfred Argueta M.D. on 10/30/2021 at 16:11 ? ? ECG Data Interpretation: Normal sinus rhythm rate 60 p.r. interval 04/19/2005 QRS 112 QTC [address]-T MDM Narrative Medical decision making narrative: Patient does look like he has leukocytosis and blood in his urine blood work is overall reassuring normal kidney function. Patient is no longer having pain, possible passed kidney stone. Patient is no longer seeing Dr. Gan he is being followed a kidney stone clinic with [facility]. I recommend outpatient follow-up there. He is given a prescription of for antibiotics for probable UTI. Discharge Plan Departure Patient Disposition: Home Clinical Impression: Bilateral ureteral calculi, Bilateral nephrolithiasis, Urinary tract infection Instructions: DI for Kidney Stones Activity Restrictions/Additional Instructions: *You have been diagnosed with kidney stones and UTI *What to do: At this time he likely did pass another kidney stone. Please follow-up with urology as scheduled *Continue to take medications as directed Keflex 500 mg twice a day for 7 days *Follow up with your primary care provider in 2-3 days or call [phone] Follow-up with Dr. Gan, call tomorrow to schedule point *Return to ER if you should have increased pain nausea vomiting or any new, worsening or concerning symptoms Prescriptions: New cephalexin 500 mg capsule 500 mg PO BID 7 Days Qty: 14 0RF No Action atorvastatin 80 mg tablet 80 mg PO BEDTIME levothyroxine 50 mcg tablet 50 mcg PO 0600 zolpidem 5 mg tablet 5 mg PO BEDTIME tamsulosin 0.4 mg capsule 0.8 mg PO 1600 clopidogrel 75 mg tablet 75 mg PO DAILY aspirin 81 mg tablet,chewable 81 mg PO DAILY Label Comments: Take 1 tablet by mouth once a day Rytary 48.75-195 mg capsule, extended release PO 5XD Rx Instructions: 4 tabs at 0700, 1000, 1300, 1600, 1900, and 1 tab at 2200 Rytary 23.75-95 mg capsule, extended release 23.75 - 95 cap PO BID Rx Instructions: take at 0700 and 2200 carbidopa-levodopa 25-100 mg tablet 25 - 100 tab PO 0100,0400 Gocovri 137 mg capsule,extended release 24hr 137 mg PO 0700,2200 Nourianz 20 mg tablet 20 mg 0700 Label Comments: Take 1 tablet by mouth once a day ropinirole 4 mg tablet 8 mg PO 0700,1000 ropinirole 4 mg tablet 4 mg PO 1300,1600 Xadago 100 mg tablet 100 mg PO 0700 Kynmobi 25 mg film 25 mg SUBLINGUAL PRN (Reason: parkinsons) Rx Instructions: up to 5xday , 2 hours apart alprazolam PO Referrals: Axel Robledo MD [Primary Care Provider] - Visit Report Forms: Patient Portal/API
[2021-10-30 17:30] VITALS: PULSE 69; RESP 24
[2021-10-30 18:00] VITALS: PULSE 61; RESP 24
[2021-10-30 18:13] VITALS: BP 158/74; PULSE 77; RESP 20; O2SAT 98
== END 2021-10-30 18:15 | disposition home or self-care (01) ==
PROVIDERS: Emergency Provider Emergency Medicine; PCP Family Medicine
DX: N20.1 Calculus of ureter (principal); N20.0 Calculus of kidney; N39.0 Urinary tract infection, site not specified; R31.9 Hematuria, unspecified; Z96.0 Presence of urogenital implants; Z79.01 Long term (current) use of anticoagulants; R03.0 Elevated blood-pressure reading, without diagnosis of hypertension; I49.3 Ventricular premature depolarization
CPT/HCPCS: 36415; 74018; 80053; 81003; 81015; 83690; 85025; 85610; 87086; 93005; 93010; 99283; 99284

== ENCOUNTER → 2022-02-06 15:13 | Outpatient (CLI) | payer MEDICARE, OTHER, SELFPAY ==
[2021-08-17 02:11] VITALS: BMI 25.7
[2022-02-06 19:13] LABS: Appearance Urine UA CLEAR; Bilirubin Urine UA NEGATIVE (NEGATIVE); Color Urine UA YELLOW; Glucose Urine UA NEGATIVE (Negative); Ketones Urine UA TRACE (NEGATIVE); Leukocyte Esterase Urine UA TRACE (NEGATIVE); Nitrite Urine UA NEGATIVE (Negative); Occult Blood Urine UA TRACE-LYSED (Negative); Protein Urine UA NEGATIVE (Negative); Specific Gravity Urine UA 1.015 (1.000-1.035); Urobilinogen Urine UA 0.2 E.U./dL (0.2); pH Urine UA 6.5 (4.5-8.0)
[2022-02-06 19:27] LABS: Bacteria Urine None Seen; Culture Indicated Urine Specimen Cultured; RBC Urine 5-10/HPF (0-5/HPF); WBC Urine 5-10/HPF (0-5/HPF)
== END ==
PROVIDERS: PCP Family Medicine; Referring Provider Physician Assistant Surgical; Visit Provider Physician Assistant Surgical
DX: N20.0 Calculus of kidney (principal)
CPT/HCPCS: 81001; 87086

== ENCOUNTER → 2022-04-29 09:55 | Outpatient (CLI) | payer MEDICARE, OTHER, SELFPAY ==
[2021-08-17 02:11] VITALS: BMI 25.7
--- NOTE | 2022-04-29 10:01 | DI.RAD.S_ITS ---
PROCEDURE: XR ABDOMEN MIN 2V INDICATIONS: CALCULUS OF KIDNEY TECHNIQUE: 2 views of the abdomen were acquired. COMPARISON: [facility], CT, CT KIDNEY URETER BLADDER (KUB), 08/16/2021, 22:54. [facility], CR, XR KUB, 10/30/2021, 16:19. FINDINGS: Surgical changes and devices: Bilateral ureteral stents seen on the last exam have been removed. Cholecystectomy clips are noted. Bowel: No pneumoperitoneum. The bowel gas pattern is normal. There is a large amount of stool in colon. Soft tissues: No masses; visualized solid organ contours appear normal in size. No suspicious abdominal calcifications. Bones: No suspicious bony abnormalities. IMPRESSION: A large amount of stool in colon. Renal contours are obscured. Cannot exclude residual renal calculi. Dictated by: Sam Carlos M.D. on 04/30/2022 at 7:38 Approved by: Sam Carlos M.D. on 04/30/2022 at 7:56
[2022-04-29 10:59] LABS: Appearance Urine UA CLEAR; Bilirubin Urine UA NEGATIVE (NEGATIVE); Color Urine UA YELLOW; Glucose Urine UA NEGATIVE (Negative); Ketones Urine UA 1+ (NEGATIVE); Leukocyte Esterase Urine UA NEGATIVE (NEGATIVE); Nitrite Urine UA NEGATIVE (Negative); Occult Blood Urine UA NEGATIVE (Negative); Protein Urine UA NEGATIVE (Negative); Specific Gravity Urine UA 1.025 (1.000-1.035); Urobilinogen Urine UA 0.2 E.U./dL (0.2)
[2022-04-29 12:13] LABS: Bacteria Urine Few (2-10); Calcium Oxalate Crystals Urine Few; Hyaline Casts Urine 1-5/LPF; RBC Urine 1-5/HPF (0-5/HPF); WBC Urine 0-1/HPF (0-5/HPF)
[2022-04-29 12:14] LABS: Culture Indicated Urine Cult Not Indicated
== END ==
PROVIDERS: PCP Family Medicine; Referring Provider Physician Assistant Surgical; Visit Provider Physician Assistant Surgical
DX: N20.0 Calculus of kidney (principal)
CPT/HCPCS: 74019; 81001

== ENCOUNTER → 2022-05-09 09:16 | Outpatient (CLI) | payer MEDICARE, OTHER, SELFPAY ==
[2021-08-17 02:11] VITALS: BMI 25.7
--- NOTE | 2022-05-09 | DI.US.S_ITS ---
PROCEDURE: US RENAL COMPLETE INDICATIONS: Calculus of kidney TECHNIQUE: Real-time scanning was performed of the kidneys and bladder, with image documentation. COMPARISON: [facility], CR, XR KUB, 10/30/2021, 16:19. [facility], CT, CT KIDNEY URETER BLADDER (KUB), 08/16/2021, 22:54. [facility], CR, XR ABDOMEN MIN 2V, 04/29/2022, 10:22. FINDINGS: Kidneys: Kidneys are normal in size. Right kidney measures 10.8 cm long; left kidney measures 11.7 cm long. Right renal cortical thickness is 2.0 cm; left renal cortical thickness is 1.1 cm. Renal cortical echotexture is normal. A 7 mm calculus is seen at the interpolar region of the left kidney. No definite right-sided renal calculus is seen radiographically. There is no hydronephrosis. No suspicious solid mass lesions. Bladder: Bladder is nondistended on prevoid images, which compromises evaluation. Miscellaneous: No free pelvic fluid. IMPRESSION: Left renal 7 mm nonobstructing calculus. No right renal calculus is seen sonographically. No hydronephrosis. Approved by: Jelani Jacinto M.D. on 05/09/2022 at 11:49
== END ==
PROVIDERS: PCP Family Medicine; Referring Provider Urology; Visit Provider Urology
DX: N20.0 Calculus of kidney (principal)
CPT/HCPCS: 76770

== ENCOUNTER 2022-05-13 16:01 | Emergency (ER) | payer MEDICARE, OTHER, SELFPAY ==
[2021-08-17 02:11] VITALS: BMI 25.7
[2022-05-13 16:17] VITALS: BP 108/55; PULSE 69; RESP 18; TEMP 36.7; O2SAT 100; BMI 25.7
[2022-05-13] MEDS: PROPARACAINE 0.5% OPHTH SOL 1 DROPS EYE-RIGHT (16:23)
[2022-05-13] MEDS: FLUORESCEIN 1 MG STRIP EYE-RIGHT (16:23)
[2022-05-13 18:20] VITALS: BP 110/78; PULSE 60; RESP 18; O2SAT 99
--- NOTE | 2022-05-13 20:42 | ED.EYEPROB ---
HPI - Eye Problem <Danika Calles PA-C - Last Filed: 05/13/22 20:49> General Chief complaint: Eye Problems Stated complaint: pt has something in rt eye Time Seen by Provider: 05/13/22 16:34 Source: patient and family Mode of arrival: Ambulatory History of Present Illness HPI Narrative: 71-year-old male with past medical history Parkinson's presents to the ED with 1 day of right-sided eye irritation. Patient states he feels like there is a foreign object, is having a hard time keeping the right eye open, is tearing. Patient does not know what went into his eyes. Patient denies any visual changes. Patient denies diplopia, blurry vision. Patient denies pain behind the eye. Patient denies fever, chills, chest pain, shortness of breath, nausea, vomiting, lightheadedness, dizziness, syncope. Related Data Home Medications Medication Instructions Recorded Confirmed amantadine HCl 137 mg 137 mg PO 0700,2200 08/17/21 09/30/21 capsule,extended release 24 hr (Gocovri) apomorphine 25 mg sublingual film 25 mg sublingual PRN parkinsons 08/17/21 09/03/21 (Kynmobi) aspirin 81 mg chewable tablet 81 mg PO DAILY 08/17/21 09/30/21 atorvastatin 80 mg tablet 80 mg PO BEDTIME 08/17/21 09/30/21 carbidopa 25 mg-levodopa 100 mg 25 - 100 tab PO 0100,0400 08/17/21 09/30/21 tablet carbidopa ER 23.75 mg-levodopa 95 23.75 - 95 cap PO BID 08/17/21 09/30/21 mg capsule,extended release (Rytary) carbidopa ER 48.75 mg-levodopa 195 cap PO 5XD 08/17/21 09/03/21 mg capsule,extended release (Rytary) clopidogrel 75 mg tablet 75 mg PO DAILY 08/17/21 09/30/21 istradefylline 20 mg tablet 20 mg 0700 08/17/21 09/30/21 (Nourianz) levothyroxine 50 mcg tablet 50 mcg PO 0600 08/17/21 09/30/21 ropinirole 4 mg tablet 4 mg PO 1300,1600 08/17/21 09/30/21 ropinirole 4 mg tablet 8 mg PO 0700,1000 08/17/21 09/30/21 safinamide 100 mg tablet (Xadago) 100 mg PO 0700 08/17/21 09/30/21 tamsulosin 0.4 mg capsule 0.8 mg PO 1600 08/17/21 09/30/21 zolpidem 5 mg tablet 5 mg PO BEDTIME 08/17/21 09/30/21 alprazolam PO 09/03/21 09/03/21 Previous Rx's Medication Instructions Recorded erythromycin 5 mg/gram (0.5 %) eye 0.5 inch EYE-RIGHT QID 5 days #3.5 05/13/22 ointment grams Allergies Allergy/AdvReac Type Severity Reaction Status Date / Time iodine Allergy Verified 05/13/22 16:17 haloperidol [From Haldol] AdvReac Unknown Verified 05/13/22 16:17 Review of Systems <Danika Calles PA-C - Last Filed: 05/13/22 20:49> Review of Systems ROS Unobtainable: All systems reviewed & are unremarkable except as noted in HPI and below Constitutional Constitutional: Denies chills, Denies fatigue, Denies fever(s), Denies frequent falls, Denies lethargy and Denies weakness Eyes Eyes: Denies change in vision, Denies eye discharge, Reports irritation and Denies loss of vision ENT Ears, Nose, Mouth, and Throat: Denies change in voice, Denies dizziness, Denies neck pain, Denies sore throat and Denies throat swelling Cardiovascular Cardiovascular: Denies chest pain, Denies irregular heart rhythm, Denies lightheadedness, Denies palpitations, Denies dyspnea, Denies dyspnea on exertion and Denies orthopnea Respiratory Respiratory: Denies cough, Denies dyspnea, Denies dyspnea on exertion and Denies wheezing Gastrointestinal Gastrointestinal: Denies abdominal pain, Denies change in bowel habits, Denies diarrhea, Denies nausea and Denies vomiting Genitourinary Genitourinary: Denies hematuria, Denies flank pain, Denies urinary incontinence and Denies urinary urgency Musculoskeletal Musculoskeletal: Denies back pain, Denies muscle weakness, Denies neck pain, Denies numbness and Denies tingling Integumentary/Breasts Skin/Breast: Denies pruritus, Denies erythema, Denies rash and Denies wounds Neurologic Neurologic: Denies behavioral changes, Denies confusion, Denies dizziness, Denies frequent falls, Denies loss of vision, Denies numbness, Denies tingling and Denies weakness Psychiatric Psychiatric: Denies anxiety, Denies behavioral changes, Denies confusion, Denies depression, Denies homicidal ideation and Denies suicidal ideation Endocrine Endocrine: Denies fatigue, Denies flushing and Denies palpitations Hematologic/Lymphatic Hematologic/Lymphatic: Denies easy bruising Allergic/Immunologic Allergic/Immunologic: Denies urticaria, Denies throat swelling and Denies wheezing Patient History <Danika Calles PA-C - Last Filed: 05/13/22 20:49> Medical History Acute kidney injury (08/2021) Bilateral nephrolithiasis History of heart attack (02/01/21) History of kidney stones Hx of chest pain Hx of Parkinson's disease Hx of thyroid disease Parkinson's disease Surgical History History of coronary artery stent placement (2020) History of ureter stent Hx of cystoscopy (08/17/21) Hx of laparoscopy Hx of total knee replacement Family History Father Cancer Hearing impairment Grandmother Cancer Social History marital status: number of children: 2 household members: spouse Smoking Status: Never smoker alcohol intake: never caffeine: No Type(s) of exercise: walking and bicycling frequency: 1-2 times per week Smoking Status: Never smoker Substance Use Type: does not use Exam <Danika Calles PA-C - Last Filed: 05/13/22 20:49> Narrative Exam Narrative: Const General:?cooperative, healthy appearing and comfortable [facility] Head:?normal to inspection Ears:?hearing grossly normal bilaterally Nose:?external nose normal Face and sinus:?normal facial exam and sinuses nontender Mouth:?oral mucosae normal Throat:?posterior oropharynx normal Eyes General:? Right eye appears erythematous, tearing. No foreign object on eyelid eversion or exam. Vision is grossly normal. Fluorescein exam shows corneal abrasion at the top end of the right cornea. Neck Neck:?normal visual inspection and no lymphadenopathy noted Resp Effort & Inspection:?normal respiratory effort Auscultation:?clear to auscultation bilaterally Cardio Rate:?regular rate Rhythm:?regular rhythm Neuro General:?patient alert, patient awake and patient oriented x3; PERRLA Initial Vital Signs Initial Vital Signs: Vital Signs Temperature 98.1 F 05/13/22 16:17 Pulse Rate 69 05/13/22 16:17 Respiratory Rate 18 05/13/22 16:17 Blood Pressure 108/55 L 05/13/22 16:17 Pulse Oximetry 100 05/13/22 16:17 Oxygen Delivery Method 05/13/22 16:17 <Nathan Hamlin DO - Last Filed: 05/16/22 07:01> Initial Vital Signs Initial Vital Signs: Vital Signs Temperature 98.1 F 05/13/22 16:17 Pulse Rate 69 05/13/22 16:17 Respiratory Rate 18 05/13/22 16:17 Blood Pressure 108/55 L 05/13/22 16:17 Pulse Oximetry 100 05/13/22 16:17 Oxygen Delivery Method 05/13/22 16:17 Course <Danika Calles PA-C - Last Filed: 05/13/22 20:49> Orders Ordered: Discontinued Medications Fluorescein Sodium (Fluorescein 1 Mg Strip) 1 mg EYE-RIGHT NOW ONE Stop: 05/13/22 16:17 Last Admin: 05/13/22 16:23 Dose: 1 mg Documented By: COURTNEY Proparacaine HCl (Proparacaine 0.5% Ophth Brittani) 1 drops EYE-RIGHT NOW ONE Stop: 05/13/22 16:17 Last Admin: 05/13/22 16:23 Dose: 1 drop Documented By: COURTNEY Vital Signs Vital signs: Vital Signs - 8 hr 05/13/22 16:17 05/13/22 18:20 Temperature 98.1 F Pulse Rate 69 60 Respiratory Rate 18 18 Blood Pressure 108/55 L 110/78 Pulse Oximetry 100 99 Oxygen Delivery Method Room Air Room Air <Nathan Hamlin DO - Last Filed: 05/16/22 07:01> Orders Ordered: Discontinued Medications Fluorescein Sodium (Fluorescein 1 Mg Strip) 1 mg EYE-RIGHT NOW ONE Stop: 05/13/22 16:17 Last Admin: 05/13/22 16:23 Dose: 1 mg Documented By: COURTNEY Proparacaine HCl (Proparacaine 0.5% Ophth Brittani) 1 drops EYE-RIGHT NOW ONE Stop: 05/13/22 16:17 Last Admin: 05/13/22 16:23 Dose: 1 drop Documented By: COURTNEY Vital Signs Vital signs: Vital Signs - 8 hr 05/13/22 16:17 05/13/22 18:20 Temperature 98.1 F Pulse Rate 69 60 Respiratory Rate 18 18 Blood Pressure 108/55 L 110/78 Pulse Oximetry 100 99 Oxygen Delivery Method Room Air Room Air MDM - Eye Problem <Danika Calles PA-C - Last Filed: 05/13/22 20:49> MDM Narrative Medical decision making narrative: 71-year-old male with past medical history Parkinson's presents to the ED with 1 day of right-sided eye irritation. Concern for corneal abrasion versus foreign object versus other. Patient's symptoms improved with proparacaine and he was able to keep the eye open without irritation, which is reassuring as it is a surface injury. Fluorescein exam shows a corneal abrasion to the top end of the cornea. No foreign objects visualized on exam or eyelid eversion. Vision grossly intact. Will prescribe erythromycin ointment, ketorolac eyedrops. Patient agrees to follow-up with ophthalmology in 48 hours. ED return precautions were discussed with patient. Patient verbalized understanding. Medical record reviewed: Yes Discharge Plan Departure Patient Disposition: Home Clinical Impression: Corneal abrasion Instructions: DI for Corneal Abrasion Activity Restrictions/Additional Instructions: You were evaluated in the ED for right-sided eye irritation. On exam, you were diagnosed with a corneal abrasion to the right eye. This can happen when you have a piece of dirt or other foreign body enter your eye and scratched the corneal surface. Corneal abrasions will heal spontaneously in 3-5 days. You are being prescribed erythromycin antibiotic ointment as well as ketorolac eyedrops for pain control. Please follow-up with [facility] physicians and surgeons in 48 hours. You may call [phone] to make an appointment. Return to the ED if you have worsening symptoms, eye pain that is not controlled by ketorolac, vision changes. Prescriptions: New erythromycin 5 mg/gram (0.5 %) ointment 0.5 inch EYE-RIGHT QID 5 Days Qty: 3.5 0RF No Action atorvastatin 80 mg tablet 80 mg PO BEDTIME levothyroxine 50 mcg tablet 50 mcg PO 0600 zolpidem 5 mg tablet 5 mg PO BEDTIME tamsulosin 0.4 mg capsule 0.8 mg PO 1600 clopidogrel 75 mg tablet 75 mg PO DAILY aspirin 81 mg tablet,chewable 81 mg PO DAILY Label Comments: Take 1 tablet by mouth once a day Rytary 48.75-195 mg capsule, extended release PO 5XD Rx Instructions: 4 tabs at 0700, 1000, 1300, 1600, 1900, and 1 tab at 2200 Rytary 23.75-95 mg capsule, extended release 23.75 - 95 cap PO BID Rx Instructions: take at 0700 and 2200 carbidopa-levodopa 25-100 mg tablet 25 - 100 tab PO 0100,0400 Gocovri 137 mg capsule,extended release 24hr 137 mg PO 0700,2200 Nourianz 20 mg tablet 20 mg 0700 Label Comments: Take 1 tablet by mouth once a day ropinirole 4 mg tablet 8 mg PO 0700,1000 ropinirole 4 mg tablet 4 mg PO 1300,1600 Xadago 100 mg tablet 100 mg PO 0700 Kynmobi 25 mg film 25 mg SUBLINGUAL PRN (Reason: parkinsons) Rx Instructions: up to 5xday , 2 hours apart alprazolam PO Referrals: Axel Robledo MD [Primary Care Provider] - Stand Alone Forms: Patient Portal/API <Nathan Hamlin DO - Last Filed: 05/16/22 07:01> [facility] Attestation: Dr Hamlin Co-Sign Statement: I was available for consultation during this patient's emergency department visit. This chart is signed by myself for administrative purposes only. I did not have direct contact with this patient during this visit. They were seen independently by the APC.
== END 2022-05-13 18:21 | disposition home or self-care (01) ==
PROVIDERS: Emergency Provider Student in an Organized Health Care Education/Training Program; PCP Family Medicine
DX: S05.01XA Injury of conjunctiva and corneal abrasion without foreign body, right eye, initial encounter (principal); G20 Parkinson's disease; Z79.899 Other long term (current) drug therapy
CPT/HCPCS: 99282

== ENCOUNTER → 2022-07-25 10:01 | Outpatient (CLI) | payer MEDICARE, OTHER, SELFPAY ==
[2021-08-17 02:11] VITALS: BMI 25.7
[2022-07-25 11:47] LABS: BUN Creatinine Ratio 19.3 (6-22); Blood Urea Nitrogen 16 mg/dL (9-20); Calcium 9.7 mg/dL (8.4-10.2); Carbon Dioxide 28 mmol/L (22-32); Chloride 104 mmol/L (98-107); Estimated Glomerular Filt Rate > 60 mL/min (>60); Glucose 111 mg/dL (80-110); HEMOLYSIS < 15 (0-50); Potassium 4.1 mmol/L (3.4-5.1); Sodium 139 mmol/L (137-145)
[2022-07-25 11:57] LABS: Vitamin D 25 Hydroxy (D3) 27.9 ng/mL (30.0-100.0)
[2022-07-27 10:07] LABS: Parathyroid Hormone Int 78 pg/mL (15-65)
== END ==
PROVIDERS: PCP Family Medicine; Referring Provider Physician Assistant Surgical; Visit Provider Physician Assistant Surgical
DX: E83.50 Unspecified disorder of calcium metabolism (principal); R82.994 Hypercalciuria
CPT/HCPCS: 36415; 80048; 82306; 83970

== ENCOUNTER 2023-11-11 18:29 | Emergency (ER) | payer MEDICARE, OTHER, SELFPAY ==
[2021-08-17 02:11] VITALS: BMI 25.7
[2023-11-11] VITALS (15 sets, daily range): BP systolic 145–154; BP diastolic 62–83; PULSE 61–79; RESP 18–24; TEMP 36.9; O2SAT 99–100; BMI 26.9
--- NOTE | 2023-11-11 18:43 | DI.RAD.S_ITS ---
PROCEDURE: XR CHEST 1V INDICATIONS: chest pain TECHNIQUE: One view of the chest was acquired. COMPARISON: None. FINDINGS: Surgical changes and devices: Presume stimulator device is present with wires extending cephalad. Lungs and pleura: Lungs are clear. No pleural effusions or pneumothorax. Mediastinum: Mediastinal contours appear normal. Heart size is normal. Bones and chest wall: No suspicious bony lesions. Overlying soft tissues appear unremarkable. IMPRESSION: No acute cardiopulmonary abnormality is seen. Dictated by: Aissatou Mendez M.D. on 11/11/2023 at 19:52 Approved by: Aissatou Mendez M.D. on 11/11/2023 at 19:52
--- NOTE | 2023-11-11 18:43 | EKG_ITS ---
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
[2023-11-11 19:13] LABS: INR 1.1 (0.9-1.3); Prothrombin Time 13.1 SECONDS (9.4-12.5)
[2023-11-11 19:16] LABS: PTT Partial Thromboplastin Tim 39 SECONDS (25.1-36.5)
[2023-11-11 19:18] LABS: Alanine Aminotransferase 7 IU/L (<50); Albumin 3.9 g/dL (3.5-5.0); Albumin Globulin Ratio 1.4 (1.0-2.8); Alkaline Phosphatase 113 U/L (38-126); Aspartate Aminotransferase 28 IU/L (17-59); BUN Creatinine Ratio 20.9 (6-22); Bilirubin Total 1.2 mg/dL (0.2-1.3); Blood Urea Nitrogen 19 mg/dL (9-20); Calcium 9.3 mg/dL (8.4-10.2); Carbon Dioxide 27 mmol/L (22-32); Chloride 106 mmol/L (98-107); Creatine Kinase 109 U/L (55-170); Estimated Glomerular Filt Rate > 60 mL/min (>60); Globulin 2.8 g/dL (1.7-4.1); Glucose 115 mg/dL (80-110); HEMOLYSIS < 15 (0-50); Lipase 46 U/L (23-300); Magnesium 2.3 mg/dL (1.6-2.3); Sodium 138 mmol/L (137-145); Total Protein 6.7 g/dL (6.3-8.2)
[2023-11-11 19:29] LABS: NT-proBNP (BNP-Adult 18+) 91 pg/mL (<125); Troponin I < 0.012 ng/mL (0.01-0.034)
[2023-11-11 19:34] LABS: Add Manual Diff / Slide Review NO; Basophils Absolute Auto 0 /uL (0-100); Basophils Percent Auto 0.6 % (0-2); Eosinophils Absolute Auto 100 /uL (0-450); Eosinophils Percent Auto 1.6 % (2-4); Hematocrit 36.1 % (41-53); Hemoglobin 12.1 g/dL (13.5-17.5); Lymphocytes Absolute Auto 1500 /uL (1100-4500); Lymphocytes Percent Auto 26.7 % (25-40); Mean Corpuscular HGB Conc 33.5 % (30-36); Mean Corpuscular Hemoglobin 32.4 PG (26-34); Mean Corpuscular Volume 96.6 fL (80-100); Monocytes Absolute Auto 400 /uL (0-900); Monocytes Percent Auto 7.7 % (3-14); Neutrophils Absolute Auto 3500 /uL (1500-7000); Neutrophils Percent Auto 63.4 % (50-75); Platelet Count 196 X10^3/uL (150-400); Red Blood Cell Count 3.74 X10^6/uL (4.5-5.9); Red Cell Distribution Width 12.9 % (11.6-14.8); White Blood Cell Count 5.6 X10^3/uL (4.5-11.0)
--- NOTE | 2023-11-11 20:24 | PC.NURSE ---
Patient came to ED today for a fall. He hit his left head on a board after a mechanical fall. The board had a nail which caught his cheek. He has a 1 cm laceration on his cheek that is well approximated and is not currently bleeding. He has been having falls more lately, related to Parkinson until his parkinsons meds were changed and he started using a walker. He denies chest pain or SOb or dizzyness. He was only sent ot he ED by the walk in clinic because his HR was in the 30. His rate is in the 60s here now.
[2023-11-11] MEDS: TET,DIPH,PERTUSS(ACELL),VAC/PF 0.5 ML SYRINGE IM (20:57)
--- NOTE | 2023-11-11 23:20 | ED_ITS ---
HPI - Arrhythmia/Palpitations General Chief Complaint: Arrhythmia/Palpitations Stated Complaint: Fall, low heart rate Time Seen by Provider: 11/11/23 21:37 Source: patient and family Mode of arrival: Wheelchair History of Present Illness HPI narrative: Patient is a 72-year-old male history of Parkinson's with deep brain stimulator frequent falls history of coronary artery disease with stents and aspirin presenting today with a ground level fall. He falls frequently although since the deep brain stimulator he has gotten better. He was in the garage today he fell he his head on a board in his crew got his left cheek. Of consciousness no nausea or vomiting no other injuries from the fall. They went to urgent care walk-in clinic where they found his heart rate to be 30 and sent him to the ED. He does have bigeminy on the monitor. He denies any chest pain or palpitations. No fever chills numbness tingling or weakness. Related Data Home Medications Medication Instructions Recorded Confirmed amantadine HCl 137 mg 137 mg PO 0700,2200 08/17/21 11/11/23 capsule,extended release 24 hr (Gocovri) apomorphine 25 mg sublingual film 25 mg sublingual PRN parkinsons 08/17/21 11/11/23 (Kynmobi) aspirin 81 mg chewable tablet 81 mg PO DAILY 08/17/21 11/11/23 atorvastatin 80 mg tablet 80 mg PO BEDTIME 08/17/21 11/11/23 carbidopa 25 mg-levodopa 100 mg 25 - 100 tab PO 0100,0400 08/17/21 11/11/23 tablet carbidopa ER 23.75 mg-levodopa 95 23.75 - 95 cap PO BID 08/17/21 11/11/23 mg capsule,extended release (Rytary) carbidopa ER 48.75 mg-levodopa 195 cap PO 5XD 08/17/21 11/11/23 mg capsule,extended release (Rytary) clopidogrel 75 mg tablet 75 mg PO DAILY 08/17/21 11/11/23 istradefylline 20 mg tablet 20 mg 0700 08/17/21 11/11/23 (Nourianz) levothyroxine 50 mcg tablet 50 mcg PO 0600 08/17/21 11/11/23 ropinirole 4 mg tablet 4 mg PO 1300,1600 08/17/21 11/11/23 ropinirole 4 mg tablet 8 mg PO 0700,1000 08/17/21 11/11/23 safinamide 100 mg tablet (Xadago) 100 mg PO 0700 08/17/21 11/11/23 tamsulosin 0.4 mg capsule 0.8 mg PO 1600 08/17/21 11/11/23 zolpidem 5 mg tablet 5 mg PO BEDTIME 08/17/21 11/11/23 alprazolam PO 09/03/21 11/11/23 Previous Rx's Medication Instructions Recorded metoprolol succinate 25 mg 12.5 mg (1/2 x 25 mg) PO BID #30 11/12/23 tablet,extended release 24 hr tabs Allergies Allergy/AdvReac Type Severity Reaction Status Date / Time iodine Allergy Verified 11/11/23 18:43 haloperidol [From Haldol] AdvReac Unknown Verified 11/11/23 18:43 Patient History Medical History Acute kidney injury (08/2021) Bilateral nephrolithiasis History of heart attack (02/01/21) History of kidney stones Hx of chest pain Hx of Parkinson's disease Hx of thyroid disease Parkinson's disease Surgical History History of coronary artery stent placement (2020) History of ureter stent Hx of cystoscopy (08/17/21) Hx of laparoscopy Hx of total knee replacement Family History Father Cancer Hearing impairment Grandmother Cancer Social History marital status: number of children: 2 household members: spouse Smoking Status: Never smoker alcohol intake: never caffeine: No Type(s) of exercise: walking and bicycling frequency: 1-2 times per week Smoking Status: Never smoker Substance Use Type: does not use Exam Initial Vital Signs Initial Vital Signs: Vital Signs Pulse Rate 69 11/11/23 18:36 Pulse Oximetry 99 11/11/23 18:36 GENERAL: Alert 72-year-old male no acute distress HEENT: Head atraumatic,EOMI, pupils reactive, face symmetric, moist mucous membranes NECK: No vertebral tenderness no step-off full range of motion CARDIOVASCULAR: Regular rate and rhythm without murmurs, rubs or gallops. RESPIRATORY: Breath sounds equal bilaterally, no wheezes rales or rhonchi. ABDOMEN: Soft, nontender. Normoactive bowel sounds all 4 quadrants. No guarding or rebound. EXTREMITIES: Normal range of motion, no clubbing or edema. Neurovascularly intact NEUROLOGICAL: Alert and oriented x4 mathematical statistician strength equal bilaterally SKIN: Left cheek superficial abrasion mild contusion Scores GCS Juli coma scale eye opening: Spontaneous Juli coma scale verbal response: Orientated Juli coma scale motor response: Obey commands Juli coma scale total score: 15 Course Orders Ordered: Discontinued Medications Diphtheria/Tetanus/Acell Pertussis (Tet,Diph,Pertuss(Acell),Vac/Pf 0.5 Ml Syringe) 0.5 ml IM .ONCE ONE Stop: 11/11/23 20:32 Last Admin: 11/11/23 20:57 Dose: 0.5 ml Documented By: ALVIN Sodium Chloride (Normal Saline 0.9%) 1,000 mls @ 1,000 mls/hr IV BOLUS ONE Stop: 11/12/23 00:26 Last Infusion: 11/12/23 01:10 Dose: Infused Documented By: Admin: 11/12/23 00:04 Dose: 1,000 mls/hr Documented By: PIEDAD Metoprolol Succinate (Metoprolol Er 25 Mg Tablet) 12.5 mg PO NOW ONE Stop: 11/12/23 00:43 Last Admin: 11/12/23 01:11 Dose: 12.5 mg Documented By: PIEDAD Metoprolol Tartrate (Metoprolol Tartrate 5 Mg/5 Ml Inj) 5 mg IV NOW ONE Stop: 11/11/23 23:52 Last Admin: 11/12/23 00:03 Dose: 5 mg Documented By: PIEDAD Vital Signs Vital signs: Vital Signs - 8 hr 11/11/23 22:00 11/11/23 22:30 11/11/23 23:00 Pulse Rate 65 65 79 Respiratory Rate 21 22 18 Blood Pressure Pulse Oximetry 99 99 99 Oxygen Delivery Method 11/11/23 23:30 11/12/23 00:00 11/12/23 00:10 Pulse Rate 67 65 65 Respiratory Rate 19 19 19 Blood Pressure Pulse Oximetry 99 98 99 Oxygen Delivery Method 11/12/23 00:10 11/12/23 00:16 11/12/23 00:16 Pulse Rate 57 L Respiratory Rate 21 Blood Pressure 136/68 134/64 Pulse Oximetry 99 Oxygen Delivery Method Room Air 11/12/23 00:30 11/12/23 00:42 11/12/23 00:42 Pulse Rate 55 L 59 L Respiratory Rate Blood Pressure 128/80 Pulse Oximetry 98 99 Oxygen Delivery Method 11/12/23 01:00 11/12/23 01:01 11/12/23 01:01 Pulse Rate 61 58 L 72 Respiratory Rate 20 20 Blood Pressure 141/95 H Pulse Oximetry 99 99 Oxygen Delivery Method Room Air 11/12/23 01:11 Pulse Rate 72 Respiratory Rate Blood Pressure 141/95 H Pulse Oximetry Oxygen Delivery Method MDM - Arrhythmia/Palpitations Lab Data 11/11/23 18:56 11/11/23 18:56 Labs: Lab Results 11/11/23 Range/Units 18:56 WBC 5.6 (4.5-11.0) X10^3/uL RBC 3.74 L (4.5-5.9) X10^6/uL Hgb 12.1 L (13.5-17.5) g/dL Hct 36.1 L (41-53) % MCV 96.6 (80-100) fL MCH 32.4 (26-34) PG MCHC 33.5 (30-36) % RDW 12.9 (11.6-14.8) % Plt Count 196 (150-400) X10^3/uL Neut % (Auto) 63.4 (50-75) % Lymph % (Auto) 26.7 (25-40) % [place]rie % (Auto) 7.7 (3-14) % Eos % (Auto) 1.6 L (2-4) % Baso % (Auto) 0.6 (0-2) % Neut # (Auto) 3500 (2010-8979) /uL Lymph # (Auto) 1500 (8106-0323) /uL [place] # (Auto) 400 (0-900) /uL Eos # (Auto) 100 (0-450) /uL Baso # (Auto) 0 (0-100) /uL PT 13.1 H (9.4-12.5) SECONDS INR 1.1 (0.9-1.3) APTT 39 H (25.1-36.5) SECONDS Sodium 138 (137-145) mmol/L Potassium 4.0 (3.4-5.1) mmol/L Chloride 106 (98-107) mmol/L Carbon Dioxide 27 (22-32) mmol/L BUN 19 (9-20) mg/dL Creatinine 0.91 (0.66-1.25) mg/dL Estimated GFR > 60 (>60) mL/min BUN/Creatinine Ratio 20.9 (6-22) Glucose 115 H (80-110) mg/dL Calcium 9.3 (8.4-10.2) mg/dL Magnesium 2.3 (1.6-2.3) mg/dL Total Bilirubin 1.2 (0.2-1.3) mg/dL AST 28 (17-59) IU/L ALT 7 (<50) IU/L Alkaline Phosphatase 113 (38-126) U/L Total Creatine Kinase 109 (55-170) U/L Troponin I < 0.012 (0.01-0.034) ng/mL NT-Pro-B Natriuret Pep 91 (<125) pg/mL Total Protein 6.7 (6.3-8.2) g/dL Albumin 3.9 (3.5-5.0) g/dL Globulin 2.8 (1.7-4.1) g/dL Albumin/Globulin Ratio 1.4 (1.0-2.8) Lipase 46 (23-300) U/L Imaging Data Chest x-ray: Radiologist's Impresson: PROCEDURE: XR CHEST 1V INDICATIONS: chest pain TECHNIQUE: One view of the chest was acquired. COMPARISON: None. FINDINGS: Surgical changes and devices: Presume stimulator device is present with wires extending cephalad. Lungs and pleura: Lungs are clear. No pleural effusions or pneumothorax. Mediastinum: Mediastinal contours appear normal. Heart size is normal. Bones and chest wall: No suspicious bony lesions. Overlying soft tissues appear unremarkable. IMPRESSION: No acute cardiopulmonary abnormality is seen. Dictated by: Aissatou Mendez M.D. on 11/11/2023 at 19:52 Approved by: Aissatou Mendez M.D. on 11/11/2023 at 19:52 ECG Data Interpretation: Bigeminy rate 64 no acute ischemia previous EKG does show PVC MDM Narrative Medical decision making narrative: MDM CC: Fall left cheek laceration Complicating co-morbidities: Parkinson's frequent falls deep brain stimulator not on anticoagulation Corroborating data: [ ] Data collected from: Family Medical records reviewed: Walk-in clinic record reports heart rate of 33 recommended coming to ED Differential considered: [ ] Exam documented above, pertinent findings include: Alert pleasant 72-year-old male he does have small fairly superficial left facial laceration mathematical statistician strength equal no other evidence of injury Lab Test results independently reviewed as above. Pertinent findings: WBC 5.6, hemoglobin 12.1, hematocrit 36.1 platelets 196 INR 1.1 PTT 39 Sodium 138 potassium 4.0 chloride 106 carbon dioxide 27 BUN 19 creatinine 0.91 glucose 115, troponin negative Bilirubin 1.2 AST 20 ALT 7 alk-phos 113, lipase 46 Independently reviewed EKG as above bigeminy with artifact from deep brain stimulator Imaging studies independently reviewed: Chest x-ray no acute cardiopulmonary process Consultations: None Treatments: Lopressor 5 mg and metoprolol 12.5, tetanus Re-evaluations: Continues to be stable Discussion: Patient presenting today after ground level fall and left cheek laceration which was repaired by nursing with Steri-Strips and Dermabond. Patient is persistently in bigeminy 4 hours on the monitor. He actually responded really well to Lopressor but quickly again had frequent PVCs so metoprolol succinate low dose was given. It is difficult to tell why patient fell if he fell due to bradycardia versus his Parkinson's. I discussed this at length with family recommended ZIO patch. I suspect he fell from his Parkinson's he falls regularly although I can not be completely sure he is completely asymptomatic with his bigeminy. He has a social studies department chair whom he sees any also has a PCP who he checks in with regularly. At this time I recommend he follow-up with his providers, he may or may not continue the metoprolol but he is doing better. He walked with his walker without any sort of difficulty Discharge Plan Departure Patient Disposition: Home Clinical Impression: Fall, Bigeminy Instructions: Premature Ventricular Beats, Arrhythmias Activity Restrictions/Additional Instructions: *You have been diagnosed with fall, bigeminy *What to do: You were started on metoprolol here in the emergency department help with bigeminy. Please make sure that you follow-up with your primary care provider and social studies department chair. You may require ZIO patch to determine if a fall is related to the heart or not *Continue to take medications as directed Metoprolol 12.5 mg twice a day *Follow up with your primary care provider in 2-3 days or call [phone] *Return to ER if you should have dizziness lightheadedness passing out recurrent falls chest pain or any new, worsening or concerning symptoms Prescriptions: New metoprolol succinate 25 mg tablet extended release 24 hr 12.5 mg PO BID Qty: 30 0RF No Action atorvastatin 80 mg tablet 80 mg PO BEDTIME levothyroxine 50 mcg tablet 50 mcg PO 0600 zolpidem 5 mg tablet 5 mg PO BEDTIME tamsulosin 0.4 mg capsule 0.8 mg PO 1600 clopidogrel 75 mg tablet 75 mg PO DAILY aspirin 81 mg tablet,chewable 81 mg PO DAILY Patient Comments: Take 1 tablet by mouth once a day Rytary 48.75-195 mg capsule, extended release PO 5XD Rx Instructions: 4 tabs at 0700, 1000, 1300, 1600, 1900, and 1 tab at 2200 Rytary 23.75-95 mg capsule, extended release 23.75 - 95 cap PO BID Rx Instructions: take at 0700 and 2200 carbidopa-levodopa 25-100 mg tablet 25 - 100 tab PO 0100,0400 Gocovri 137 mg capsule,extended release 24hr 137 mg PO 0700,2200 Nourianz 20 mg tablet 20 mg 0700 Patient Comments: Take 1 tablet by mouth once a day ropinirole 4 mg tablet 8 mg PO 0700,1000 ropinirole 4 mg tablet 4 mg PO 1300,1600 Xadago 100 mg tablet 100 mg PO 0700 Kynmobi 25 mg film 25 mg SUBLINGUAL PRN (Reason: parkinsons) Rx Instructions: up to 5xday , 2 hours apart alprazolam PO Referrals: Axel Robledo MD [Primary Care Provider] - Stand Alone Forms: Patient Portal/API
[2023-11-12] VITALS (8 sets, daily range): BP systolic 128–141; BP diastolic 64–95; PULSE 55–72; RESP 19–21; O2SAT 98–99
[2023-11-12] MEDS: METOPROLOL TARTRATE 5 MG/5 ML INJ IV (00:03)
[2023-11-12] MEDS: SODIUM CHLORIDE 0.9% 1,000 ML 1000 ML IV (00:04)
[2023-11-12] MEDS: METOPROLOL ER 25 MG TABLET 12.5 MG PO (01:11)
== END 2023-11-12 01:23 | disposition home or self-care (01) ==
PROVIDERS: Emergency Provider Emergency Medicine; PCP Family Medicine
DX: I49.8 Other specified cardiac arrhythmias (principal); S01.412A Laceration without foreign body of left cheek and temporomandibular area, initial encounter; R07.9 Chest pain, unspecified; R29.6 Repeated falls; W18.30XA Fall on same level, unspecified, initial encounter; G20.A1 Parkinson's disease without dyskinesia, without mention of fluctuations; Z23 Encounter for immunization
CPT/HCPCS: 36415; 71045; 80053; 82550; 83690; 83735; 83880; 84484; 85025; 85610; 85730; 90471; 93005; 96361; 96374; 99284; 90715

== ENCOUNTER 2024-05-05 14:06 | Day surgery (SDC) | payer MEDICARE, OTHER, SELFPAY ==
[2024-03-08 09:29] VITALS: BMI 25.7
[2024-05-05 14:48] VITALS: BP 146/76; PULSE 61; RESP 17; TEMP 36.4; O2SAT 98
[2024-05-05] MEDS: SODIUM CHLORIDE 0.9% 1,000 ML 84 ML IV (15:02)
--- NOTE | 2024-05-05 15:11 | P.HP_ITS ---
History of Present Illness History of Present Illness Date Patient Seen: 05/05/24 Time Patient Seen: 15:11 Chief complaint: Dx Colonoscopy w/poss bx Narrative: Kevon is a 73-year-old man with Parkinson's who had a recent positive Cologuard test. See the office note from March for details. [facility] Medical History Acute kidney injury (08/2021) Bilateral nephrolithiasis History of kidney stones Hx of thyroid disease Hx of Parkinson's disease History of heart attack (02/01/21) Hx of chest pain Parkinson's disease Surgical History Hx of cystoscopy (08/17/21) History of ureter stent Hx of laparoscopy Hx of total knee replacement History of coronary artery stent placement (2020) Family History Father Cancer Hearing impairment Grandmother Cancer Social History marital status: number of children: 2 household members: spouse Smoking Status: Never smoker alcohol intake: never caffeine: No Type(s) of exercise: walking and bicycling frequency: 1-2 times per week Meds Home Medications and Allergies Home Medications Medication Instructions Recorded Confirmed Type amantadine HCl 137 mg 137 mg PO 0700,2200 08/17/21 03/21/24 History capsule,extended release 24 hr (Gocovri) aspirin 81 mg chewable tablet 81 mg PO DAILY 08/17/21 03/21/24 History atorvastatin 80 mg tablet 80 mg PO BEDTIME 08/17/21 03/21/24 History levothyroxine 50 mcg tablet 50 mcg PO 0600 08/17/21 03/21/24 History ropinirole 4 mg tablet 8 mg PO 0700,1000 08/17/21 03/21/24 History tamsulosin 0.4 mg capsule 0.8 mg PO 1600 08/17/21 03/21/24 History alprazolam 0.25 mg PO .QD PRN 03/21/24 03/21/24 History carbidopa 25 mg-levodopa 100 mg 25 - 100 tab PO ONCE 03/21/24 03/21/24 History tablet carbidopa ER 48.75 mg-levodopa 195 cap PO ONCE 03/21/24 03/21/24 History mg capsule,extended release (Rytary) istradefylline 20 mg tablet 40 mg PO DAILY 03/21/24 03/21/24 History (Nourianz) sildenafil 100 mg tablet 100 mg PO DAILY PRN 03/21/24 03/21/24 History sodium,potassium,mag sulfates 17.5 See Rx Instructions PO .COMPLEX 03/21/24 Rx gram-3.13 gram-1.6 gram oral soln #354 mL (Suprep Bowel Prep Kit) tadalafil 20 mg tablet 20 mg PO DAILY PRN 03/21/24 03/21/24 History trazodone 50 mg tablet 100 mg PO BEDTIME 03/21/24 03/21/24 History Allergies Allergy/AdvReac Type Severity Reaction Status Date / Time iodine Allergy Verified 03/21/24 13:25 haloperidol [From Haldol] AdvReac Unknown Verified 03/21/24 13:25 Exam Vital Signs (past 8 hours): - 05/05/24 14:48 Temperature 97.6 F Pulse Rate 61 Respiratory Rate 17 Blood Pressure 146/76 H Pulse Oximetry 98 Oxygen Delivery Method Room Air Oxygen Delivery Method Room Air Const General: No acute distress Assessment & Plan Assessment and plan (1) Positive colorectal cancer screening using Cologuard test: Status: Acute Plan Colonoscopy Time-Based Coding :: [TOTAL MINUTES] spent with patient and on the chart (including review of chart, obtaining history, exam, reviewing outside data, placing orders, documenting exam and treatment plan, and counseling patient) on [DATE]. [employer] Consultant Document charge(s): No
[2024-05-05 16:48] VITALS: BP 132/72; PULSE 57; RESP 11; TEMP 36.6; O2SAT 99
[2024-05-05 16:55] VITALS: BP 139/72; PULSE 58; RESP 14; O2SAT 100
--- NOTE | 2024-05-05 16:56 | PM.OP.COLON ---
Operative Date/Time/Diagnoses Date of procedure: 05/05/24 Time of procedure: 16:56 Pre-op diagnosis: Positive Cologuard test Post-op diagnosis: same Procedure & Clinicians Study performed: Colonoscopy (aborted) Same procedure as scheduled: Yes Surgeon: Lionel Boucher Procedure Notes Procedure in detail: Surgeon: Lionel Boucher MD Anesthesia: Sofie Tubbs MD Procedure: The patient was brought to the endoscopy suite, placed in left lateral decubitus position. The patient was connected to monitoring devices. A time-out was performed. Sedation was administered. Once the patient was adequately sedated, a digital rectal exam was performed and was normal. The scope was then inserted. Prep was inadequate to safely navigate sigmoid colon the procedure was terminated. Scope withdrawal time: Not applicable Sedation time: 2 minutes EBL: 0 Findings: Inadequate prep Post-procedure Disposition: PACU
[2024-05-05 17:00] VITALS: BP 137/77; PULSE 56; RESP 16; O2SAT 99
[2024-05-05 17:07] VITALS: BP 135/73; PULSE 57; RESP 16; O2SAT 99
== END 2024-05-05 17:14 | disposition home or self-care (01) ==
PROVIDERS: PCP Family Medicine; Referring Provider Surgery; Visit Provider Surgery
PROC: 0DJD8ZZ Inspection of Lower Intestinal Tract, Via Natural or Artificial Opening Endoscopic (ICD-10-PCS; CPT 45378; principal; 2024-05-05 15:15)
DX: R19.5 Other fecal abnormalities (principal); I25.10 Atherosclerotic heart disease of native coronary artery without angina pectoris; I25.2 Old myocardial infarction; G20.A1 Parkinson's disease without dyskinesia, without mention of fluctuations; Z95.5 Presence of coronary angioplasty implant and graft
CPT/HCPCS: 45330

== ENCOUNTER 2024-06-02 09:26 | Day surgery (SDC) | payer MEDICARE, OTHER, SELFPAY ==
[2024-03-08 09:29] VITALS: BMI 25.7
[2024-06-02 09:42] VITALS: BP 133/77; PULSE 71; RESP 18; TEMP 36.4; O2SAT 99
[2024-06-02] MEDS: LACTATED RINGERS 1,000 ML 42 ML IV (09:49)
--- NOTE | 2024-06-02 10:05 | P.HP_ITS ---
History of Present Illness History of Present Illness Date Patient Seen: 06/02/24 Time Patient Seen: 10:05 Chief complaint: Dx Colonoscopy w/poss bx Narrative: Kevon is back for another attempt at a colonoscopy. He was here last month because of a positive fit test but the prep was inadequate. This time he did a 2 day fast. See the prior office note more details. [facility] Medical History Acute kidney injury (08/2021) Bilateral nephrolithiasis History of kidney stones Hx of thyroid disease Hx of Parkinson's disease History of heart attack (02/01/21) Hx of chest pain Parkinson's disease Surgical History Hx of cystoscopy (08/17/21) History of ureter stent Hx of laparoscopy Hx of total knee replacement History of coronary artery stent placement (2020) Family History Father Cancer Hearing impairment Grandmother Cancer Social History marital status: number of children: 2 household members: spouse Smoking Status: Never smoker alcohol intake: never caffeine: No Type(s) of exercise: walking and bicycling frequency: 1-2 times per week Meds Home Medications and Allergies Home Medications Medication Instructions Recorded Confirmed Type amantadine HCl 137 mg 137 mg PO 0700,2200 08/17/21 03/21/24 History capsule,extended release 24 hr (Gocovri) aspirin 81 mg chewable tablet 81 mg PO DAILY 08/17/21 03/21/24 History atorvastatin 80 mg tablet 80 mg PO BEDTIME 08/17/21 03/21/24 History levothyroxine 50 mcg tablet 50 mcg PO 0600 08/17/21 03/21/24 History ropinirole 4 mg tablet 8 mg PO 0700,1000 08/17/21 03/21/24 History tamsulosin 0.4 mg capsule 0.8 mg PO 1600 08/17/21 03/21/24 History alprazolam 0.25 mg PO .QD PRN 03/21/24 03/21/24 History carbidopa 25 mg-levodopa 100 mg 25 - 100 tab PO ONCE 03/21/24 03/21/24 History tablet carbidopa ER 48.75 mg-levodopa 195 cap PO ONCE 03/21/24 03/21/24 History mg capsule,extended release (Rytary) istradefylline 20 mg tablet 40 mg PO DAILY 03/21/24 03/21/24 History (Nourianz) sildenafil 100 mg tablet 100 mg PO DAILY PRN 03/21/24 03/21/24 History tadalafil 20 mg tablet 20 mg PO DAILY PRN 03/21/24 03/21/24 History trazodone 50 mg tablet 100 mg PO BEDTIME 03/21/24 03/21/24 History sodium,potassium,mag sulfates 17.5 See Rx Instructions PO .COMPLEX 05/11/24 Rx gram-3.13 gram-1.6 gram oral soln #354 mL (Suprep Bowel Prep Kit) Allergies Allergy/AdvReac Type Severity Reaction Status Date / Time iodine Allergy Verified 03/21/24 13:25 haloperidol [From Haldol] AdvReac Unknown Verified 03/21/24 13:25 Exam Vital Signs (past 8 hours): - 06/02/24 09:42 Temperature 97.5 F L Pulse Rate 71 Respiratory Rate 18 Blood Pressure 133/77 Pulse Oximetry 99 Oxygen Delivery Method Room Air Oxygen Delivery Method Room Air Const General: No acute distress Resp Effort & Inspection: normal respiratory effort Assessment & Plan Assessment and plan (1) Positive colorectal cancer screening using Cologuard test: Status: Acute Plan Colonoscopy Time-Based Coding :: [TOTAL MINUTES] spent with patient and on the chart (including review of chart, obtaining history, exam, reviewing outside data, placing orders, documenting exam and treatment plan, and counseling patient) on [DATE]. PROFEE Cash Management Officer Document charge(s): No
[2024-06-02 10:22] VITALS: BP 123/80; PULSE 77; RESP 17; TEMP 36.2; O2SAT 99
--- NOTE | 2024-06-02 10:22 | PM.OP.COLON ---
Operative Date/Time/Diagnoses Date of procedure: 06/02/24 Time of procedure: 10:22 Pre-op diagnosis: Positive fit test Post-op diagnosis: same Procedure & Clinicians Study performed: Colonoscopy Same procedure as scheduled: Yes Surgeon: Lionel Boucher Procedure Notes Procedure in detail: Surgeon: Lionel Boucher MD Anesthesia: Flavio rAchuleta DO Procedure: The patient was brought to the endoscopy suite, placed in left lateral decubitus position. The patient was connected to monitoring devices. A time-out was performed. Sedation was administered. Once the patient was adequately sedated, a digital rectal exam was performed and was normal. The scope was then inserted and advanced to into the rectum. The prep was once again inadequate. The patient was awakened and brought to recovery. Scope withdrawal time: Not applicable Sedation time: 2 minutes EBL: 0 Findings: Inadequate prep Post-procedure Disposition: PACU
[2024-06-02 10:28] VITALS: BP 125/76; PULSE 82; RESP 18; O2SAT 100
[2024-06-02 10:33] VITALS: BP 124/75; PULSE 61; RESP 19; O2SAT 100
[2024-06-02 10:39] VITALS: BP 130/83; PULSE 64; RESP 16; TEMP 36.3; O2SAT 96
== END 2024-06-02 10:56 | disposition home or self-care (01) ==
PROVIDERS: PCP Family Medicine; Referring Provider Surgery; Visit Provider Surgery
PROC: 0DJD8ZZ Inspection of Lower Intestinal Tract, Via Natural or Artificial Opening Endoscopic (ICD-10-PCS; CPT 45378; principal; 2024-06-02 10:45)
DX: Z12.11 Encounter for screening for malignant neoplasm of colon (principal); R19.5 Other fecal abnormalities
CPT/HCPCS: G0121; J2704

== ENCOUNTER → 2024-07-15 08:53 | Outpatient (CLI) | payer MEDICARE, OTHER, SELFPAY ==
[2024-03-08 09:29] VITALS: BMI 25.7
--- NOTE | 2024-07-15 08:56 | DI.RAD.S_ITS ---
PROCEDURE: FL BARIUM ENEMA INDICATIONS: incomplete colonoscopy prep COMPARISON: None. FINDINGS: KUB: Preprocedural breeding manager film demonstrates a normal bowel gas pattern. No suspicious abdominal calcifications. Visualized solid organ contours appear normal in size. No suspicious bony lesions. Colon: Severely redundant colon is noted which limited the exam due to limited movement of contrast through the redundant colon to the cecum. Some images demonstrate decreased caliber of the colon most notably in the mid transverse colon most likely related to artifact from peristalsis however focal areas of colitis or other wall thickening which rarely may include neoplasm could not be excluded and follow-up CT abdomen/pelvis following evacuation of barium may be for for further evaluation. IMPRESSION: Limited exam with severely redundant colon as discussed above. Scattered focal areas of narrowing most likely related to artifact from peristalsis however other causes not excluded and follow-up CT suggested. Dictated by: Al Zelaya M.D. on 07/15/2024 at 15:05 Approved by: Al Zelaya M.D. on 07/15/2024 at 15:11
== END ==
PROVIDERS: PCP Family Medicine; Referring Provider Surgery; Visit Provider Surgery
DX: R19.5 Other fecal abnormalities (principal); K56.2 Volvulus
CPT/HCPCS: 74270

== ENCOUNTER → 2024-11-03 08:59 | Outpatient (CLI) | payer MEDICARE, OTHER, SELFPAY ==
[2024-03-08 09:29] VITALS: BMI 25.7
[2024-11-03 10:00] LABS: Hematocrit 40.7 % (41-53); Hemoglobin 14.1 g/dL (13.5-17.5); Mean Corpuscular HGB Conc 34.8 % (30-36); Mean Corpuscular Hemoglobin 33.0 PG (26-34); Mean Corpuscular Volume 94.9 fL (80-100); Platelet Count 189 X10^3/uL (150-400)
[2024-11-03 10:25] LABS: Blood Urea Nitrogen 16 mg/dL (9-20); Calcium 10.2 mg/dL (8.4-10.2); Carbon Dioxide 27 mmol/L (22-32); Chloride 104 mmol/L (98-107); Cholesterol 123 mg/dL (140-199); Estimated Glomerular Filt Rate > 60 mL/min (>60); Glucose 106 mg/dL (70-99); HDL Cholesterol 45 mg/dL (40-60); HEMOLYSIS < 15 (0-50); Potassium 4.6 mmol/L (3.4-5.1); Sodium 139 mmol/L (137-145); Triglycerides 134 mg/dL (35-150)
== END ==
PROVIDERS: PCP Family Medicine; Referring Provider Internal Medicine Cardiovascular Disease; Visit Provider Internal Medicine Cardiovascular Disease
DX: I25.10 Atherosclerotic heart disease of native coronary artery without angina pectoris (principal)
CPT/HCPCS: 36415; 80048; 80061; 85027

== ENCOUNTER 2025-02-12 11:04 | Emergency (ER) | payer MEDICARE, OTHER, SELFPAY ==
[2024-03-08 09:29] VITALS: BMI 25.7
[2025-02-12] VITALS (7 sets, daily range): BP systolic 121–143; BP diastolic 60–67; PULSE 60–65; RESP 12; O2SAT 97–100; BMI 26.4
--- NOTE | 2025-02-12 11:16 | DI.RAD.S_ITS ---
PROCEDURE: XR RIBS LT MIN 3V W CXR1V INDICATIONS: fall TECHNIQUE: 2 views of the ribs were acquired, along with a single view chest. Limited by patient positioning COMPARISON: None. FINDINGS: Surgical changes and devices: Left-sided pulse generator. Elevated left hemidiaphragm. Bones and chest wall: No fractures or dislocations. No suspicious bony lesions. Overlying soft tissues appear unremarkable. Lungs and pleura: No pleural effusions or pneumothorax. Lungs appear clear. Mediastinum: Mediastinal contours appear normal. Heart size is normal. IMPRESSION: No displaced rib fracture or pneumothorax. Approved by: Mario Finney M.D. on 02/12/2025 at 11:28
--- NOTE | 2025-02-12 12:43 | PC.NURSE ---
Pt shift production associate light asking if he can take his home parkinsons medication. Dr. Foote approved
--- NOTE | 2025-02-12 12:48 | ED.FALL ---
HPI - Fall General Chief Complaint: Fall Stated Complaint: Mechanical Fall Time Seen by Provider: 02/12/25 12:47 Source: EMS Mode of arrival: EMS History of Present Illness HPI Narrative: Patient is a 74-year-old male history of Parkinson's with deep brain stimulator, coronary artery disease with stents taking aspirin, frequent falls presents today after ground level fall. He landed with his right wrist under his left ribs. He did not hit his head or lose consciousness. He takes a baby aspirin daily but no anticoagulation. He received Tylenol prior to arrival and pain is feeling better. Related Data Home Medications ?Medication ?Instructions ?Recorded ?Confirmed amantadine HCl 137 mg 137 mg PO 0700,2200 08/17/21 03/21/24 capsule,extended release 24 hr (Gocovri) aspirin 81 mg chewable tablet 81 mg PO DAILY 08/17/21 03/21/24 atorvastatin 80 mg tablet 80 mg PO BEDTIME 08/17/21 03/21/24 levothyroxine 50 mcg tablet 50 mcg PO 0600 08/17/21 03/21/24 ropinirole 4 mg tablet 8 mg PO 0700,1000 08/17/21 03/21/24 tamsulosin 0.4 mg capsule 0.8 mg PO 1600 08/17/21 03/21/24 alprazolam 0.25 mg PO .QD PRN 03/21/24 03/21/24 carbidopa 25 mg-levodopa 100 mg 25 - 100 tab PO ONCE 03/21/24 03/21/24 tablet carbidopa ER 48.75 mg-levodopa 195 cap PO ONCE 03/21/24 03/21/24 mg capsule,extended release (Rytary) istradefylline 20 mg tablet 40 mg PO DAILY 03/21/24 03/21/24 (Nourianz) sildenafil 100 mg tablet 100 mg PO DAILY PRN 03/21/24 03/21/24 tadalafil 20 mg tablet 20 mg PO DAILY PRN 03/21/24 03/21/24 trazodone 50 mg tablet 100 mg PO BEDTIME 03/21/24 03/21/24 Previous Rx's ?Medication ?Instructions ?Recorded sodium,potassium,mag sulfates 17.5 See Rx Instructions PO .COMPLEX 07/08/24 gram-3.13 gram-1.6 gram oral soln #354 mL (Suprep Bowel Prep Kit) Allergies Allergy/AdvReac Type Severity Reaction Status Date / Time iodine Allergy Verified 03/21/24 13:25 haloperidol (From Haldol) AdvReac Unknown Verified 03/21/24 13:25 Patient History Medical History Acute kidney injury (08/2021) Bilateral nephrolithiasis History of kidney stones Hx of thyroid disease Hx of Parkinson's disease History of heart attack (02/01/21) Hx of chest pain Parkinson's disease Surgical History Hx of cystoscopy (08/17/21) History of ureter stent Hx of laparoscopy Hx of total knee replacement History of coronary artery stent placement (2020) Family History Father Cancer Hearing impairment Grandmother Cancer Social History marital status: number of children: 2 household members: spouse Smoking Status: Never smoker alcohol intake: never caffeine: No Type(s) of exercise: walking and bicycling frequency: 1-2 times per week Smoking Status: Never smoker Exam Initial Vital Signs Initial Vital Signs: Vital Signs Blood Pressure 143/67 H 02/12/25 11:08 GENERAL: Alert well-appearing 74-year-old male and in no acute distress. HEENT: Head atraumatic,EOMI, pupils reactive, face symmetric, moist mucous membranes CARDIOVASCULAR: Regular rate and rhythm without murmurs, rubs or gallops. RESPIRATORY: Breath sounds equal bilaterally, no wheezes rales or rhonchi. No rib contusion no paradoxical movement ABDOMEN: Soft, nontender. Normoactive bowel sounds all 4 quadrants. No guarding or rebound. EXTREMITIES: Normal range of motion, no clubbing or edema. Neurovascularly intact NEUROLOGICAL: Alert and oriented x4.Normal gait and speech. At baseline SKIN: Warm, dry, no laceration, no petechiae, no rashes or lesions. Course Orders Ordered: ED Orders 02/12/25 11:16 XR ribs LT min 3V w CXR1V Stat Vital Signs Vital signs: Vital Signs - 8 hr 02/12/25 11:08 02/12/25 11:09 02/12/25 11:11 Pulse Rate 64 65 Respiratory Rate 12 Blood Pressure 143/67 H 143/67 H Pulse Oximetry 99 98 Oxygen Delivery Method Room Air 02/12/25 11:30 02/12/25 11:31 02/12/25 11:31 Pulse Rate 63 64 Respiratory Rate Blood Pressure 121/60 Pulse Oximetry 98 100 Oxygen Delivery Method 02/12/25 12:00 02/12/25 12:00 02/12/25 12:30 Pulse Rate 60 Respiratory Rate Blood Pressure 139/65 133/63 Pulse Oximetry 97 Oxygen Delivery Method 02/12/25 12:30 02/12/25 13:05 Pulse Rate 61 Respiratory Rate Blood Pressure Pulse Oximetry 100 Oxygen Delivery Method Room Air MDM - Fall Imaging Data Chest x-ray: Radiologist's Impression: PROCEDURE: XR RIBS LT MIN 3V W CXR1V INDICATIONS: fall TECHNIQUE: 2 views of the ribs were acquired, along with a single view chest. Limited by patient positioning COMPARISON: None. FINDINGS: Surgical changes and devices: Left-sided pulse generator. Elevated left hemidiaphragm. Bones and chest wall: No fractures or dislocations. No suspicious bony lesions. Overlying soft tissues appear unremarkable. Lungs and pleura: No pleural effusions or pneumothorax. Lungs appear clear. Mediastinum: Mediastinal contours appear normal. Heart size is normal. IMPRESSION: No displaced rib fracture or pneumothorax. Approved by: Mario Finney M.D. on 02/12/2025 at 11:28 [facility] Narrative Medical decision making narrative: Patient is 74-year-old male history of Parkinson's presenting today as mechanical ground level fall. He is complaining of some left-sided rib pain. X-ray is negative for fracture no evidence of trauma contusion on exam. Board of care only. No head injury not on anticoagulation no need for advanced imaging. Discharge Plan Departure Patient Disposition: Home Clinical Impression: Contusion of rib on left side Activity Restrictions/Additional Instructions: *You have been diagnosed with rib contusion *What to do: At this time supportive care try heating pad ice *Continue to take medications as directed Tylenol as needed for pain *Follow up with your primary care provider in 2-3 days or call [phone] *Return to ER if you should have increasing pain cough shortness of breath or any new, worsening or concerning symptoms Prescriptions: No Action sodium,potassium,mag sulfates [Suprep Bowel Prep Kit] 17.5-3.13-1.6 gram recon soln See Rx Instructions PO .COMPLEX Qty: 354 0RF Rx Instructions: Take as directed by Physician. sildenafil 100 mg tablet 100 mg PO DAILY PRN Rx Instructions: administer 30 minutes to 4 hours before activity tadalafil 20 mg tablet 20 mg PO DAILY PRN Rx Instructions: administer approximately 30min before sexual activity; do not use more than 1 dose per 24hrs trazodone 50 mg tablet 100 mg PO BEDTIME atorvastatin 80 mg tablet 80 mg PO BEDTIME levothyroxine 50 mcg tablet 50 mcg PO 0600 tamsulosin 0.4 mg capsule 0.8 mg PO 1600 aspirin 81 mg tablet,chewable 81 mg PO DAILY Patient Comments: Take 1 tablet by mouth once a day Gocovri 137 mg capsule,extended release 24hr 137 mg PO 0700,2200 ropinirole 4 mg tablet 8 mg PO 0700,1000 carbidopa-levodopa 25-100 mg tablet 25 - 100 tab PO ONCE Rytary 48.75-195 mg capsule, extended release PO ONCE Nourianz 20 mg tablet 40 mg PO DAILY Patient Comments: Take 1 tablet by mouth once a day alprazolam 0.25 mg PO .QD PRN Referrals: Axel Robledo MD [Primary Care Provider, Family Practice] Stand Alone Forms: Patient Portal/API
== END 2025-02-12 13:06 | disposition home or self-care (01) ==
PROVIDERS: Emergency Provider Emergency Medicine; PCP Family Medicine
DX: S20.212A Contusion of left front wall of thorax, initial encounter (principal); W19.XXXA Unspecified fall, initial encounter; G20.A1 Parkinson's disease without dyskinesia, without mention of fluctuations
CPT/HCPCS: 71101; 99281; 99283